=== PATIENT | male | born 1970 | race Two or more races ===

== ENCOUNTER 2024-07-22 17:21 | Emergency (ER) | payer MEDICAID, SELFPAY ==
[2024-07-22 17:21] VITALS: BMI 29.0
--- NOTE | 2024-07-22 17:53 | XR_ITS ---
Examination: PA lateral chest 2 views Technique: Upright PA lateral chest 2 views Exam date: July 22, 2024 7059 hours Comparison December 30, 2019 Indications: Onset coughing today Findings: Normal heart size On the lateral view partial obscuration of detail posterior right hemidiaphragm Left lung clear Impression: Early pneumonia posterior basal segment right lower lobe
--- NOTE | 2024-07-22 17:53 | PD.EDRME ---
Rapid Medical Screening Exam RME Arrival date/time: 07/22/24 17:21 54-year-old male presents emergency department complains of cough, congestion and bodyaches Chief Complaint: General Adult/Misc Complain
[2024-07-22 18:19] VITALS: BP 135/88; PULSE 90; RESP 18; TEMP 36.9; O2SAT 95
[2024-07-22 18:34] LABS: Collection Type, Urine Clean Catch; Squamous Epithelial Cell,Urine 0 /hpf (0-5)
[2024-07-22 18:52] LABS: Bilirubin,Urine Negative (Negative); Blood,Urine Negative (Negative); Clarity,Urine Clear (Clear/Hazy); Color,Urine Yellow (Lt Yel-Yel); Culture Indicated,Urine Not Indicated; Glucose, Urine Negative (Negative); Ketones,Urine Negative (Negative); Leukocyte Esterase,Urine Negative (Negative); Nitrite,Urine Negative (Negative); PH,Urine 5.5 (5.0-7.0); Protein,Urine Trace (Neg - Trace); RBC,Urine 5 /hpf (0-3); Specific Gravity,Urine 1.036 (1.001-1.035); WBC,Urine 2 /hpf (0-5)
--- NOTE | 2024-07-23 00:50 | PC.NURSE ---
PATIENT CAME TO [facility] TO ASK HOW MUCH LONG FOR RESULTS. I APOLOGIZED TO PATIENT AND NOTIFIED PROVIDER AND CHARGE NURSE.
--- NOTE | 2024-07-23 03:07 | EDNOTE_ITS ---
ED General RME/HPI General Chief complaint: General Adult/Misc Complain Stated complaint: I THINK I HAVE PNEUMONIA Time Seen by Provider: 07/22/24 18:57 Arrival date/time: 07/22/24 17:21 Limitations: no limitations RME / HPI RME / HPI narrative: 07/22/24 17:21 54-year-old male presents emergency department complains of cough, congestion and bodyaches ----- Dr. Meraz's Main ED Evaluation: 54yo male presents to the ED for a chief complaint of a cough. Patient states he's had a cough for the last 3 weeks, reporting he was previously on antibiotics, but has since finished them. He states he's had a persistent cough, so he came in for further evaluation. He reports associated fever, chills, sweating, headache, chest pain, and the inability to sleep. He also notes having UTI symptoms. He denies any N/V or any other associated symptoms. Denies any tobacco use. No known allergies. Related Data Home Medications ?Medication ?Instructions ?Recorded ?Confirmed hydrocodone 10 mg-acetaminophen 1 tab PO DIRECTED PRN 07/06/22 08/01/22 325 mg tablet tamsulosin 0.4 mg capsule 0.4 mg PO QHS 07/06/22 08/01/22 Previous Rx's ?Medication ?Instructions ?Recorded meloxicam 7.5 mg tablet 7.5 mg PO QDAY #14 tabs 09/02/22 methocarbamol 500 mg tablet 500 mg PO Q8H #14 tabs 09/02/22 hydrocodone 5 mg-acetaminophen 325 1 tab PO BID PRN pain #10 tabs 05/27/23 mg tablet acetaminophen 500 mg capsule 1,000 mg (2 x 500 mg) PO Q8HR PRN 07/04/23 pain #30 caps benzonatate 100 mg capsule 100 mg PO TID #14 caps 07/04/23 fluticasone propionate 50 2 spray intranasal QDAY PRN 07/04/23 mcg/actuation nasal allergy symptoms #16 grams spray,suspension (Flonase Allergy Relief) ibuprofen 800 mg tablet 800 mg PO TID PRN pain #30 tabs 07/04/23 loratadine 10 mg tablet 10 mg PO QDAY PRN allergy symptoms 07/04/23 #30 tabs Allergies Allergy/AdvReac Type Severity Reaction Status Date / Time No Known Allergies Allergy Verified 07/22/24 17:26 Review of Systems Review of Systems Systems Reviewed: All systems reviewed, normal except as documented Past Medical History Past Medical History NEUROLOGIC: Positive Traumatic Brain Injury CARDIAC: Negative Cardiac Disorders or Congestive Heart Failure RESPIRATORY: Negative Chronic Obstructive Pulmonary Disease (COPD) or Asthma GENITOURINARY: Negative Renal Disease ENDOCRINE: Negative Diabetes Mellitus Type 1 or Diabetes Mellitus Type 2 HEMATOLOGIC: Negative Sickle Cell Disease PSYCHO/SOCIAL: Positive Anxiety Social History SMOKING STATUS: Never smoker SUBSTANCE USE: does not use ED Exam General Limitations: Present no limitations General appearance: Present alert and in no apparent distress Head Head exam: Present atraumatic Eye Eye exam: Present normal appearance, PERRL and EOMI ENT ENT exam: Present normal exam, normal oropharynx and mucous membranes moist Neck Neck exam: Present normal inspection, full ROM and trachea midline Chest Chest inspection: Present normal inspection and symmetric chest wall rise Respiratory Respiratory exam: Present other (rhonchi on the right; appears dyspneic while talking.) Cardiovascular Cardiovascular exam: Present regular rate, normal rhythm and normal heart sounds Abdominal Exam Abdominal exam: Present soft and normal bowel sounds Extremities Exam Extremities exam: Present normal inspection and full ROM Back Exam Back exam: Present normal inspection and full ROM Neurological Exam Neurological exam: Present alert, oriented X3 and CN II-XII intact Psychiatric Psychiatric exam: Present normal affect and normal mood Skin Skin exam: Present warm, dry, intact and normal color Course Course Course Narrative: CXR is ordered for determining the etiology of cough. Quality Measures none Orders Category Date Time Status Bedside COVID-19 Antigen Test NOW Care 07/22/24 17:53 Completed Bedside Influenza A&B Antigen Test NOW Care 07/22/24 17:[address] Screening NOW Care 07/23/24 03:[address] angio chest Stat Exams 07/23/24 03:31 Taken XR chest 2V Stat Exams 07/22/24 17:53 Completed CBC Stat Lab 07/23/24 04:01 Completed CMP [Comprehensive Metabolic Panel] Stat Lab 07/23/24 04:01 Completed UA, C/S IF [Urinalysis, C/S if Indicated] Stat Lab 07/22/24 18:16 Completed 1 gm IV x1 (mini bag) ED Med 07/23/24 05:52 Ordered cefTRIAXone [Rocephin] 1,000 mg Sodium Chloride 0.9% (P) [Ns 0.9% (P)] 50 ml IV X1 Albuterol/Ipratr Rt Petra [Duoneb Rt Petra] Med 07/23/24 03:33 Discontinued 3 ml INH X1 ONE Doxycycline [Vibramycin] Med 07/23/24 05:52 Once 100 mg PO X1 ONE Sodium Chloride 0.9% 1000 ml [Ns] 1,000 ml Med 07/23/24 03:32 Discontinued IV 999 mls/hr Sodium Chloride 0.9% 1000 ml [Ns] 1,000 ml Med 07/23/24 05:52 Ordered IV 999 mls/hr Vital Signs Vital signs: Vital Signs Temperature 98.5 F 07/22/24 18:19 Pulse Rate 90 07/22/24 18:19 Respiratory Rate 18 07/22/24 18:19 Blood Pressure 135/88 H 07/22/24 18:19 Pulse Oximetry (%) 95 07/22/24 18:19 Oxygen Delivery Method Room Air 07/22/24 18:19 [facility] Patient data External records reviewed:: [facility] previous records (Per chart review, patient was seen here on 07/14/24 for a headache.) Clinical information provided by:: patient Social determinants that could affect healthcare access:: none Patient has the following chronic illnesses:: none How is presenting disease/condition affected by chronic disease/condition?: no chronic disease Evaluation data The following diagnostics were reviewed and interpreted by me:: lab results and radiology exam(s) Lab and/or radiology exams considered but not ordered:: none Interpretation Summary: Bedside COVID and Influenza are negative, UA is unremarkable, according to my interpretation. ----- [place] [facility] Report Signed Patient: LUCIA AVILES [facility] Record#: [id number] Birthdate: 1970 Age/Sex: 54 / M Location: [facility] Attending Dr: Ordering Physician: Felipe (ETHAN)Rommel NP Date of Service: 07/22/24 Procedure(s): XR chest 2V Accession Number(s): [id number] cc: Felipe MORALES)Rommel NP; Tristan Alanis MD; Maxx Bernal MD~ Examination: PA lateral chest 2 views Technique: Upright PA lateral chest 2 views Exam date: July 22, 2024 7059 hours Comparison December 30, 2019 Indications: Onset coughing today Findings: Normal heart size On the lateral view partial obscuration of detail posterior right hemidiaphragm Left lung clear Impression: Early pneumonia posterior basal segment right lower lobe Dictated By: Maxx Bernal MD Signed By: <Electronically signed by Maxx Bernal MD in OV> 07/22/24 1820 Medications Medications considered but not ordered:: none Medication administrations:: Medication Administration History Discontinued Medications Albuterol/Ipratropium (Albuterol/Ipratropium (Duoneb) Rt Petra 3 Ml Nebu) 3 ml INH X1 ONE Stop: 07/23/24 03:34 Last Admin: 07/23/24 04:29 Dose: 3 ml Documented By: SC Sodium Chloride (Ns) 1,000 mls @ 999 mls/hr IV .Q1H1M ONE Stop: 07/23/24 04:32 Last Admin: 07/23/24 04:02 Dose: 999 mls/hr Documented By: SE see above, if any Consultations Consultation(s) initiated? (list below): No Diagnosis Differential Diagnosis ED Complaint MDM: COVID, Influenza, pneumonia, PE, dehydration, UTI, kidney stone Most likely diagnosis given after review of the tests above:: see below Admission Indicated Admission indicated?: not indicated Explain why admission is indicated or not indicated:: Admission criteria not met. Admission Request Was there a request for admission?: No Disposition Plan Disposition Plan: other (specify) (Signed out to Dr. Corona at 0600 pending CTA of the chest.) Medical Decision Making Differential Diagnosis Differential Diagnosis: COVID, Influenza, pneumonia, PE, dehydration, UTI, kidney stone Lab Data 07/23/24 04:01 07/23/24 04:01 Labs: Lab Results 07/22/24 07/23/24 Range/Units 18:16 04:01 WBC 12.8 H (3.8-10.6) Thou/mm3 RBC 4.07 L (4.50-5.90) Miln/mm3 Hgb 12.7 L (13.5-16.0) g/dL Hct 38.2 L (41.0-53.0) % MCV 94 (80-100) fL MCH 31.2 (25.0-35.0) pg MCHC 33.2 (31.0-37.0) g/dl RDW Std Deviation 41.1 (35.1-43.9) fL Plt Count 207 (140-440) Thou/mm3 Neut % (Auto) 58 (37-80) % Lymph % (Auto) 31 (10-50) % [place] % (Auto) 7 (0-12) % Eos % (Auto) 2 (0-10) % Baso % (Auto) 0 (0-2.5) % Neut # (Auto) 7.4 (1.8-7.7) Thou/mm3 Lymph # (Auto) 4.0 (1.0-4.8) Thou/mm3 [place] # (Auto) 0.9 H (0.0-0.8) Thou/mm3 Eos # (Auto) 0.2 (0.0-0.5) Thou/mm3 Baso # (Auto) 0.1 (0.0-0.2) Thou/mm3 Immature Gran # (Auto) 0.23 H (0.00-0.00) Thou/mm3 Absolute Nucleated RBC 0.00 (0.00-0.00) Thou/mm3 Immature Gran % 2 H (0-0) % Nucleated RBC % 0 (0) /100 WBC Sodium 135 L (136-145) mMol/L Potassium 3.8 (3.4-5.1) mMol/L Chloride 102 (98-107) mMol/L Carbon Dioxide 26.5 (20.0-31.0) mMol/L Anion Gap 7 (7-16) BUN 17 (9-23) mg/dL Creatinine 0.9 (0.6-1.3) mg/dL Estim Creat Clear Calc 92.0 (>60) mL/min eGFR > 60 (60 - ) See Note BUN/Creatinine Ratio 19 (12-20) Ratio Glucose 110 H (74-106) mg/dL Calculated Osmolality 272 L (275-295) Calcium 9.5 (8.3-10.6) mg/dL Corrected Calcium 9.5 (8.5-10.1) mg/dL Total Bilirubin 1.0 (0.3-1.2) mg/dL AST 10 (0-34) U/L ALT 25 (10-49) U/L Alkaline Phosphatase 75 (46-116) U/L Total Protein 8.3 H (5.7-8.2) gm/dL Albumin 5.3 H (3.5-5.0) gm/dL Globulin 3.0 (2.3-3.5) gm/dL Albumin/Globulin Ratio 1.8 (1.2-2.2) Ur Collection Type Clean Catch Urine Color Yellow (Lt Yel-Yel) Urine Clarity Clear (Clear/Hazy) Urine pH 5.5 (5.0-7.0) Ur Specific [place] 1.036 H (1.001-1.035) Urine Protein Trace (Neg - Trace) Urine Glucose (UA) Negative (Negative) Urine Ketones Negative (Negative) Urine Blood Negative (Negative) Urine Nitrite Negative (Negative) Urine Bilirubin Negative (Negative) Urine Urobilinogen (Auto) 2.0 (0.0-1.0) mg/dL Ur Leukocyte Esterase Negative (Negative) Urine RBC 5 H (0-3) /hpf Urine WBC 2 (0-5) /hpf Ur Squamous Epith Cells 0 (0-5) /hpf Urine Bacteria None (None) Ur Culture Indicated? Not Indicated Discharge Plan Plan Disposition Comment: STABLE AT sign out Prescriptions/Referrals Prescriptions/Med Rec: No Action hydrocodone-acetaminophen 10-325 mg tablet 1 tab PO DIRECTED PRN tamsulosin 0.4 mg capsule 0.4 mg PO QHS hydrocodone-acetaminophen 5-325 mg tablet 1 tab PO BID MDD 10 PRN (Reason: pain) Qty: 10 0RF methocarbamol 500 mg tablet 500 mg PO Q8H Qty: 14 0RF meloxicam 7.5 mg tablet 7.5 mg PO QDAY Qty: 14 0RF acetaminophen 500 mg capsule 1,000 mg PO Q8HR PRN (Reason: pain) Qty: 30 0RF ibuprofen 800 mg tablet 800 mg PO TID PRN (Reason: pain) Qty: 30 0RF benzonatate 100 mg capsule 100 mg PO TID Qty: 14 0RF fluticasone propionate [Flonase Allergy Relief] 50 mcg/actuation spray,suspension 2 spray INTRANASAL QDAY PRN (Reason: allergy symptoms) Qty: 16 0RF Rx Instructions: administer into each nostril loratadine 10 mg tablet 10 mg PO QDAY PRN (Reason: allergy symptoms) Qty: 30 0RF Referrals: Tristan Alanis MD [Primary Care Provider] - In 1 week Problem List Clinical Impression: Community acquired pneumonia Patient/Caregiver Discharge Instructions Print Language: Barbadian
--- NOTE | 2024-07-23 03:31 | XR_ITS ---
Examination: CTA chest with intravenous contrast 2-D reconstructions 3-D reconstructions, vascular Date and time of exam: July 23, 2024 0511 hrs. Indications: Shortness of breath coughing chest pain beginning 3 weeks ago CTDI: vol (mGy) 14.37 DLP: (mGycm) 391 Technique: Multiple axial sections of the thorax have been obtained. 3 mm slice thickness, from below the hemidiaphragms to above the apices of the lungs. Mediastinal and lung density settings have been obtained. 2-D sagittal and coronal reconstructions. 3-D angiographic renderings, 3-D volume renderings, 3D post processing, vascular maximum intensity projections obtained. Contrast administered is the Isovue-370 intravenous. Low dose protocols were performed. One or more of the following dose reduction techniques were used; automated exposure control, adjustment of the mA and/or KV according to patient size, use of iterative reconstruction technique. Findings: No thoracic aortic aneurysmal dilatation Pulmonary artery segments are not enlarged No pulmonary artery emboli No paratracheal tracheobronchial or bronchopulmonary adenopathy Early pneumonia right base No focal liver or splenic lesions Contracted gallbladder with tiny gallstones No pancreatic or adrenal mass Kidneys partially visualized no hydronephrosis Mild to moderate renal parenchymal scar formation suspicious for 10 mm left periaortic lymph node Impression: Negative for pulmonary artery emboli Suspicious for 10 mm left periaortic lymph node, consider CT scan abdomen pelvis without contrast follow-up
[2024-07-23 03:50] VITALS: BP 139/86; PULSE 66; RESP 18; TEMP 36.6; O2SAT 97
[2024-07-23] MEDS: SODIUM CHLORIDE 0.9% 1000 ML 1,000 ML 999 ML IV ×2 (04:02→06:29)
[2024-07-23 04:13] LABS: Basophils # (Auto) 0.1 Thou/mm3 (0.0-0.2); Basophils % (Auto) 0 % (0-2.5); Eosinophils # (Auto) 0.2 Thou/mm3 (0.0-0.5); Eosinophils % (Auto) 2 % (0-10); Hematocrit 38.2 % (41.0-53.0); Hemoglobin 12.7 g/dL (13.5-16.0); Immature Granulocytes % (Auto) 2 % (0-0); Immature Granulocytes Auto 0.23 Thou/mm3 (0.00-0.00); Lymphocytes % (Auto) 31 % (10-50); Mean Corpuscular HGB Conc 33.2 g/dl (31.0-37.0); Mean Corpuscular Hemoglobin 31.2 pg (25.0-35.0); Mean Corpuscular Volume 94 fL (80-100); Monocytes # (Auto) 0.9 Thou/mm3 (0.0-0.8); Monocytes % (Auto) 7 % (0-12); Neutrophils # (Auto) 7.4 Thou/mm3 (1.8-7.7); Neutrophils % (Auto) 58 % (37-80); Nucleated Red Blood Cell % 0 /100 WBC (0); Platelet Count 207 Thou/mm3 (140-440); RDW Standard Deviation 41.1 fL (35.1-43.9); Red Blood Count 4.07 Miln/mm3 (4.50-5.90); White Blood Count 12.8 Thou/mm3 (3.8-10.6)
[2024-07-23] MEDS: ALBUTEROL/IPRATROPIUM (Duoneb) RT SOL 3 ML NEBU INH (04:29)
[2024-07-23 04:33] VITALS: PULSE 66; RESP 20; O2SAT 100
[2024-07-23 04:39] LABS: Alanine Aminotransferase 25 U/L (10-49); Alkaline Phosphatase 75 U/L (46-116); Anion Gap 7 (7-16); Aspartate Amino Transferase 10 U/L (0-34); BUN/Creatinine Ratio 19 Ratio (12-20); Blood Urea Nitrogen 17 mg/dL (9-23); Calcium 9.5 mg/dL (8.3-10.6); Calcium (Corrected) 9.5 mg/dL (8.5-10.1); Carbon Dioxide 26.5 mMol/L (20.0-31.0); Chloride 102 mMol/L (98-107); Creatinine (Component) 0.9 mg/dL (0.6-1.3); Glucose 110 mg/dL (74-106); Osmolality,Calculated 272 (275-295); Potassium 3.8 mMol/L (3.4-5.1); Sodium 135 mMol/L (136-145); Total Protein 8.3 gm/dL (5.7-8.2); eGFR > 60 See Note
[2024-07-23] MEDS: DOXYCYCLINE 100 MG TABLET PO (06:30)
[2024-07-23] MEDS: cefTRIAXone 1,000 MG in SODIUM CHLORIDE 0.9% (P) 50 ML 100 MG IV (06:30)
--- NOTE | 2024-07-23 06:33 | PRELIM_ITS ---
CT angiogram of the chest with intravenous contrast (axial sections with sagittal and coronal reforma ts) July 23, 2024 at 0511 hoursClinical History: Shortness of breath. Technique:Helical axial sect ions with sagittal and coronal reformats of the chest were obtained with intravenous contrast. Iterat frandy reconstruction technique was employed to reduce patient radiation exposure. 3D/MIP reconstructed images were also provided. Comparison: Compared with the prior study dated March 31, 2023.Finding s:There is no filling defect within the pulmonary artery divisions to suggest pulmonary thromboemboli sm. There are small mediastinal lymph nodes, likely reactive. The thoracic aorta is unremarkable. The re is no pericardial effusion. Mild coronary artery calcification is noted. There is bronchial wall t hickening and peribronchial ground-glass opacities in bilateral lower lobes, new since the prior exam ination. Streaky atelectasis is seen in the right middle and both lower lobes, new since the prior ex amination. No evidence of pleural effusion or pneumothorax.Mild degenerative changes are again identi fied in the spine. Again seen is cholelithiasis. Again seen are multiple colonic diverticula without evidence of diverticulitis. Nonspecific perinephric fat stranding is again noted bilaterally. The oth er visualized upper abdominal viscera are unremarkable.Impression:1. No CT evidence of pulmonary thro mboembolism.2. Bronchial wall thickening and peribronchial ground-glass opacities in bilateral lower lobes, likely of infectious etiology. Recommend clinical correlation. 3. Other findings as described above. Report Electronically Signed By: Travis Buenrostro 07/23/2024 6:32:29 AM [EST]
[2024-07-23 06:39] VITALS: BP 127/83; PULSE 76; RESP 18; TEMP 36.6; O2SAT 96
--- NOTE | 2024-07-23 07:08 | PD.EDADDENDU ---
Emergency Room Addendum Addendum Narrative: 0600: Care assumed from Dr. Waller, the previous shift emergency physician. Past medical, surgical, social and family history reviewed. Vitals and home medications reviewed. I will assume the care of the patient at this time, pending CTA report and final disposition. Please refer to the emergency department record for history and examination from initial visit.? Nursing notes reviewed by me. Vital signs reviewed by me. [place] medical records reviewed by me. 1210: Patient remains clinically stable throughout the emergency department visit. We reviewed all the results, analysis, and treatment plans. Patient is amenable to discharge. Strict return precautions were outlined. Patient was discharged in stable condition. RADIOLOGY Ordering Physician: Linda Meraz MD Date of Service: 07/23/24 Procedure(s): CT angio chest Accession Number(s): [id number] cc: Tristan Alanis MD; Maxx Bernal MD; Linda Meraz MD~ Examination: CTA chest with intravenous contrast 2-D reconstructions 3-D reconstructions, vascular Date and time of exam: July 23, 2024 0511 hrs. Indications: Shortness of breath coughing chest pain beginning 3 weeks ago CTDI: vol (mGy) 14.37 DLP: (mGycm) 391 Technique: Multiple axial sections of the thorax have been obtained. 3 mm slice thickness, from below the hemidiaphragms to above the apices of the lungs. Mediastinal and lung density settings have been obtained. 2-D sagittal and coronal reconstructions. 3-D angiographic renderings, 3-D volume renderings, 3D post processing, vascular maximum intensity projections obtained. Contrast administered is the Isovue-370 intravenous. Low dose protocols were performed. One or more of the following dose reduction techniques were used; automated exposure control, adjustment of the mA and/or KV according to patient size, use of iterative reconstruction technique. Findings: No thoracic aortic aneurysmal dilatation Pulmonary artery segments are not enlarged No pulmonary artery emboli No paratracheal tracheobronchial or bronchopulmonary adenopathy Early pneumonia right base No focal liver or splenic lesions Contracted gallbladder with tiny gallstones No pancreatic or adrenal mass Kidneys partially visualized no hydronephrosis Mild to moderate renal parenchymal scar formation suspicious for 10 mm left periaortic lymph node Impression: Negative for pulmonary artery emboli Suspicious for 10 mm left periaortic lymph node, consider CT scan abdomen pelvis without contrast follow-up Dictated By: Maxx Bernal MD Signed By: <Electronically signed by Maxx Bernal MD in OV> 07/23/24 1003
[2024-07-23 07:26] LABS: Albumin, Serum 4.5 gm/dL (3.5-5.0); Albumin/Globulin Ratio 1.2 (1.2-2.2); Globulin 3.8 gm/dL (2.3-3.5)
[2024-07-23 08:56] VITALS: BP 114/75; PULSE 78; RESP 16; TEMP 36.7; O2SAT 95
[2024-07-23 12:27] VITALS: BP 132/80; PULSE 72; RESP 19; TEMP 36.2; O2SAT 95
== END 2024-07-23 13:02 | disposition home or self-care (01) ==
PROVIDERS: Emergency Medicine; Nurse Practitioner Primary Care; Emergency Provider Emergency Medicine; PCP Family Medicine
DX: J18.9 Pneumonia, unspecified organism (principal)
CPT/HCPCS: 36415; 71046; 71275; 80053; 81001; 85025; 87400; 87811; 94640; 96365; 96366; 99285; A4649; A9270; J0696; J7030; J7050; Q9967

== ENCOUNTER 2024-09-11 18:08 | Inpatient (IN) | payer MEDICAID, SELFPAY ==
[2024-09-11] VITALS (8 sets, daily range): BP systolic 126–150; BP diastolic 83–91; PULSE 90–121; RESP 16–20; TEMP 36.5–39.2; O2SAT 92–98; BMI 28.5; BMI 27.6
--- NOTE | 2024-09-11 18:30 | PC.NURSE ---
Pt. states he's here from home via [facility], pt. states he has been SOB X 5 or 6 days. Pt. states fever started yesterday. Pt. states he has been coughing up yellow and at night it gets darker in color.
--- NOTE | 2024-09-11 18:44 | EKG_ITS ---
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
--- NOTE | 2024-09-11 18:44 | XR_ITS ---
Examination: AP chest single view Technique one AP portable supine chest single view Exam date and time: September 11, 2024 1942 hrs. Comparison July 22, 2024 Indications: Onset chest pain today. Findings: Mild prominence left ventricle Mild elevation right hemidiaphragm Poor definition left hemidiaphragm No pulmonary edema Impression: Recommend lateral chest view follow-up to exclude pneumonia left base
--- NOTE | 2024-09-11 18:53 | EDNOTE_ITS ---
ED SOB =RME/HPI General Chief Complaint: Shortness of Breath/Dyspnea Stated Complaint: SOB Time Seen by Provider: 09/11/24 18:44 Source: patient and EMS Arrival date/time: 09/11/24 18:08 Mode of arrival: EMS Limitations: no limitations RME / HPI RME / HPI Narrative: DR CORONA MAIN ED EVALUATION: 54-year-old male with a history of seasonal allergies, childhood asthma, and status post hernia repair with mesh placement in 1999, presenting to the ED from home for progressive shortness of breath, productive cough, and fever. The patient reports that his symptoms began approximately 1 week ago, initially presenting with a productive cough with greenish-yellow sputum, shortness of breath with chest tightness, and fever with chills. Over the past week, his symptoms have worsened, prompting him to seek medical evaluation. He also endorses headache, nasal congestion, and generalized fatigue, but denies nausea, vomiting, or abdominal pain. He was evaluated at [facility] yesterday for a fever of 101?F and was advised to go to the ER, but he delayed seeking care due to personal reasons. He also reports a history of recurrent respiratory issues, which have worsened over the past year, and follows up with [facility] but has never been evaluated by a phone counselor. Additionally, he has a history of pneumonia and urinary tract infections requiring hospitalization. Per EMS report, the patient was noted to have wheezing on the left side and received one respiratory treatment en route to the ED. On arrival, nursing assessment noted shallow breath sounds and dyspnea on exertion. Vital Signs on EMS Arrival: Blood pressure: 141/80 mmHg Heart rate: 118 bpm Respiratory rate: 16 breaths per minute Oxygen saturation: 95% on room air The patient denies recent travel and has not received a flu vaccination in the past 12 months. He also denies tobacco, alcohol, or substance use. He complains of severe headache, rated 10/10, which he attributes to persistent coughing episodes. Related Data Home Medications ?Medication ?Instructions ?Recorded ?Confirmed hydrocodone 10 mg-acetaminophen 1 tab PO DIRECTED P RN 07/06/22 08/01/22 325 mg tablet tamsulosin 0.4 mg capsule 0.4 mg PO QHS 07/06/2208/01 Previous Rx's ?Medication ?Instructions ?Recorded meloxicam 7.5 mg tablet 7.5 mg PO QDAY #14 tabs 08/22 09/13 methocarbamol 500 mg tablet 500 mg PO Q8H #14 tabs 07/13 hydrocodone 5 mg-acetaminophen 325 1 tab PO BID PRN pa in #10 tabs 05/27/23 mg tablet acetaminophen 500 mg capsule 1,000 mg (2 x 500 mg) PO Q8HR PRN 07/04/23 pain #30 caps benzonatate 100 mg capsule 100 mg PO TID #14 caps 06/21 11/11 fluticasone propionate 50 2 spray intranasal QDAY PRN 07/04/23 mcg/actuation nasal allergy symptoms #16 grams spray,suspension (Flonase Allergy Relief) ibuprofen 800 mg tablet 800 mg PO TID PRN pain #30 t abs 07/04/23 loratadine 10 mg tablet 10 mg PO QDAY PRN allergy sy mptoms 07/04/23 #30 tabs doxycycline monohydrate 100 mg 100 mg PO BID #14 caps 07/23/24 capsule Allergies Allergy/AdvReac Type Severity Reaction Status Date / Time No Known Allergies Allergy Verified 09/11/24 18:32 Review of Systems Review of Systems Systems Reviewed: All systems reviewed, normal except as documented Past Medical History Past Medical History NEUROLOGIC: Positive Traumatic Brain Injury CARDIAC: Negative Cardiac Disorders or Congestive Heart Failure RESPIRATORY: Positive Asthma; Negative Chronic Obstructive Pulmonary Disease (COPD) GENITOURINARY: Negative Renal Disease ENDOCRINE: Negative Diabetes Mellitus Type 1 or Diabetes Mellitus Type 2 HEMATOLOGIC: Negative Sickle Cell Disease PSYCHO/SOCIAL: Positive Anxiety Social History SMOKING STATUS: Never smoker SUBSTANCE USE: does not use ED Exam Narrative Physical exam: GENERAL APPEARANCE: alert and oriented x 4, well-developed, well-nourished, no acute distress VITALS: All vitals were reviewed and the pulse ox is 95% on room air, which is normal according to my interpretation. HEENT: Normocephalic, atraumatic; pupils equal, round, reactive to light; EOMI; mucous membranes pink, moist; oropharynx clear NECK: Supple LUNGS: CTABL; no wheezes, no rales, no rhonchi HEART: Regular rate, regular rhythm; normal S1, S2; no murmurs ABDOMEN: non distended; normal BS; soft, no tenderness, no guarding, no rebound; no masses, no organomegaly, no hernia BACK: no CVA tenderness EXTREMITIES: atraumatic; no edema NEUROLOGIC: awake; alert and oriented x4; cranial nerves II-XII grossly intact; no focal sensory or motor deficits PSYCHIATRIC: appropriate mood and affect SKIN: warm, dry, normal color; no rashes General Limitations: Present no limitations Course Course Course Narrative: 1921 Sepsis alert initiated. Orders made at this time are congruent with ED Adult Sepsis Order List. Re-evaluation is to be completed. 1999 Sepsis reassessment performed consisting of lab review, vitals, physical exam including auscultation of heart, lungs, and visual evaluation of capillary refills, mucosal membranes and extremities. CXR is ordered for determining etiology of shortness of breath, cough, fever. Quality Measures Current suspected stage: sepsis Possible source: pulmonary Blood cultures ordered: yes Antibiotic ordered: Yes Pertinent labs: 09/11/24 19:05 Lactic Acid 1.2 mMol/L (0.4-2.0) Procalcitonin 0.13 ng/ml (0.0-0.49) sepsis Orders Category Date Time Status Bedside COVID-19 Antigen Test NOW Care 09/11/24 20:01 Completed COVID-19 Screening Questionnaire NOW Care 09/11/24 20:01 Completed Multilith Operator NOW Care 09/11/24 18:44 Active EKG (ED ONLY) *Do not use* NOW Care 09/11/24 18:44 Completed EKG (ED Only) Stat Exams 09/11/24 18:44 Draft XR chest 1V portable Stat Exams 09/11/24 18:44 Completed B-Type Natriuretic Peptide Stat Lab 09/11/24 19:05 Completed Blood Culture (Lab) Stat Lab 09/11/24 19:10 Results CBC Stat Lab 09/11/24 19:05 Completed Comprehensive Metabolic Panel Stat Lab 09/11/24 19:05 Completed Lactate (Lactic Acid) Stat Lab 09/11/24 19:05 Completed Lipase Stat Lab 09/11/24 19:05 Completed Magnesium Stat Lab 09/11/24 19:05 Completed Partial Thromboplastin Time Stat Lab 09/11/24 19:05 Completed Procalcitonin Stat Lab 09/11/24 19:05 Completed Prothrombin Time with INR Stat Lab 09/11/24 19:05 Completed Troponin I Stat Lab 09/11/24 19:05 Completed Urinalysis Stat Lab 09/11/24 20:00 Completed Urine Culture Stat Lab 09/11/24 20:00 Received Acetaminophen Tab [Tylenol ES Tab] Med 09/11/24 18:45 Discontinued 1,000 mg PO X1 ONE Azithromycin Inj [Zithromax Inj] 500 mg Med 09/11/24 18:46 Discontinued Sodium Chloride 0.9% 250 ml [Ns] 250 ml IV X1 Sodium Chloride 0.9% 1000 ml [Ns] 1,000 ml Med 09/11/24 19:07 Discontinued IV 999 mls/hr cefTRIAXone [Rocephin] 1,000 mg Med 09/11/24 18:45 Discontinued SODIUM CHLORIDE 0.9% (Popper) [NS 0.9% (Popper)] 50 ml IV X1 Vital Signs Vital signs: Vital Signs Temperature 102.5 F H 09/11/24 18:15 Pulse Rate 121 H 09/11/24 18:15 Respiratory Rate 16 09/11/24 18:15 Blood Pressure 150/91 H 09/11/24 18:15 Pulse Oximetry (%) 95 09/11/24 18:15 Oxygen Delivery Method Room Air 09/11/24 18:15 Shortness of Breath / Dyspnea MDM Narrative MDM Narrative:: Scribe Attestation: I, Geena Trujillo, am scribing for and in the presence of Dr. Corona. Provider Notation: Although this document has been carefully reviewed, there may still be some phonetic and other typographical errors. These errors are purely grammatical due to imperfections in the software program and should not be construed in any way to compromise the substance of the patient's medical care during this visit. Patient data External records reviewed:: [facility] previous records and EMS form Clinical information provided by:: patient and none Social determinants that could affect healthcare access:: none Patient has the following chronic illnesses:: see PMH How is presenting disease/condition affected by chronic disease/condition?: uneffected by Evaluation data The following diagnostics were reviewed and interpreted by me:: lab results, radiology exam(s) and EKG tracing(s) Lab and/or radiology exams considered but not ordered:: na Interpretation Summary: I personally reviewed the radiology data and agree with the radiologist's interpretation. Examination: AP chest single view Technique one AP portable supine chest single view Exam date and time: September 11, 2024 1942 hrs. Comparison July 22, 2024 Indications: Onset chest pain today. Findings: Mild prominence left ventricle Mild elevation right hemidiaphragm Poor definition left hemidiaphragm No pulmonary edema Impression: Recommend lateral chest view follow-up to exclude pneumonia left base Dictated By: Maxx Bernal MD EKG manually interpreted by me shows sinus tachycardia at a rate of 121 bpm, with no ST elevation or acute ischemic changes. Overall, the interpretation is normal. Medications / Prescriptions Medications or Prescriptions considered but not ordered:: na Medication administrations:: Medication Administration History Acetaminophen (Acetaminophen 325 Mg Tablet) 650 mg PO Q6H PRN PRN Reason: PAIN OR FEVER > 101 Stop: 10/11/24 20:11 Last Admin: 09/12/24 20:19 Dose: 650 mg Documented By: Albuterol/Ipratropium (Albuterol/Ipratropium (Duoneb) Rt Petra 3 Ml Nebu) 3 ml INH Q6HRRT JACKY Stop: 10/12/24 12:59 Last Admin: 09/13/24 00:36 Dose: 3 ml Documented By: Admin: 09/12/24 19:23 Dose: 3 ml Documented By: Admin: 09/12/24 13:46 Dose: 3 ml Documented By: Benzonatate (Benzonatate 100 Mg Capsule) 200 mg PO Q8HR JACKY; Protocol Stop: 10/12/24 07:59 Last Admin: 09/12/24 22:04 Dose: 200 mg Documented By: Admin: 09/12/24 14:09 Dose: 200 mg Documented By: Admin: 09/12/24 08:30 Dose: 200 mg Documented By: CYDNEY Enoxaparin Sodium (Enoxaparin Sod Inj 40 Mg/0.4 Ml Syringe) 40 mg SC QDAY [facility] Stop: 09/26/24 08:59 Last Admin: 09/12/24 08:24 Dose: 40 mg Documented By: CYDNEY Fluticasone Propionate (Fluticasone Farhat Belton 0.05% 16 Gm Btl) 1 spray NASAL QDAY [facility] Stop: 10/12/24 09:44 Last Admin: 09/12/24 12:24 Dose: 1 spray Documented By: CYDNEY Guaifenesin (Guaifenesin Syrup 200 Mg/10 Ml Udc) 200 mg PO BID [facility]; Protocol Stop: 10/12/24 08:59 Last Admin: 09/12/24 21:17 Dose: 200 mg Documented By: Admin: 09/12/24 08:25 Dose: 200 mg Documented By: CYDNEY Sodium Chloride (Ns) 1,000 mls @ 75 mls/hr IV .[id number] [facility] Stop: 10/11/24 20:14 Last Admin: 09/13/24 01:09 Dose: 75 mls/hr Documented By: Infusion: 09/13/24 01:09 Dose: Infused Documented By: Admin: 09/12/24 11:57 Dose: 75 mls/hr Documented By: Infusion: 09/12/24 10:39 Dose: Infused Documented By: Admin: 09/11/24 21:19 Dose: 75 mls/hr Documented By: ANGEL Ceftriaxone Sodium 1,000 mg/ (Sodium Chloride) 50 mls @ 100 mls/hr IV QDAY [facility] Stop: 09/15/24 08:59 Last Admin: 09/12/24 08:24 Dose: 100 mls/hr Documented By: CYDNEY Azithromycin 500 mg/ Sodium (Chloride) 250 mls @ 250 mls/hr IV QDAY@1400 [facility] Stop: 09/13/24 13:59 Last Admin: 09/12/24 14:09 Dose: 250 mls/hr Documented By: CYDNEY Discontinued Medications Acetaminophen (Acetaminophen 500 Mg Tablet) 1,000 mg PO X1 ONE Stop: 09/11/24 18:46 Last Admin: 09/11/24 19:32 Dose: 1,000 mg Documented By: ANGEL Acetaminophen (Acetaminophen 325 Mg Tablet) 650 mg PO Q6H PRN PRN Reason: Fever >101.5 Stop: 10/11/24 20:11 Acetaminophen (Acetaminophen 500 Mg Tablet) 500 mg PO X1 ONE Stop: 09/11/24 22:53 Last Admin: 09/11/24 23:07 Dose: 500 mg Documented By: Albuterol/Ipratropium (Albuterol/Ipratropium (Duoneb) Rt Petra 3 Ml Nebu) 3 ml INH Q4HRRT [facility] Stop: 10/11/24 22:59 Last Admin: 09/12/24 07:23 Dose: 3 ml Documented By: Admin: 09/12/24 03:24 Dose: 3 ml Documented By: Admin: 09/11/24 22:44 Dose: 3 ml Documented By: LANIE Benzonatate (Benzonatate 100 Mg Capsule) 200 mg PO Q8HR PRN; Protocol PRN Reason: COUGH Stop: 10/11/24 22:51 Last Admin: 09/11/24 23:07 Dose: 200 mg Documented By: Ceftriaxone Sodium 1,000 mg/ (Sodium Chloride) 50 mls @ 100 mls/hr IV X1 ONE Stop: 09/11/24 19:14 Last Infusion: 09/11/24 20:07 Dose: Infused Documented By: Admin: 09/11/24 19:32 Dose: 100 mls/hr Documented By: ANGEL Azithromycin 500 mg/ Sodium (Chloride) 250 mls @ 250 mls/hr IV X1 ONE Stop: 09/11/24 19:45 Last Infusion: 09/11/24 21:27 Dose: Infused Documented By: Admin: 09/11/24 20:03 Dose: 250 mls/hr Documented By: ANGEL Sodium Chloride (Ns) 1,000 mls @ 999 mls/hr IV .Q1H1M ONE Stop: 09/11/24 20:07 Last Infusion: 09/11/24 20:57 Dose: Infused Documented By: Admin: 09/11/24 19:33 Dose: 999 mls/hr Documented By: ANGEL Sodium Chloride (Sodium Chloride Rt 10% 15 Ml Nebu) 5 ml INH X1 ONE Stop: 09/11/24 21:44 Last Admin: 09/11/24 22:59 Dose: Not Given Documented By: LANIE Non-Admin Reason: not needed, pt self expectorated. as above Consultations Consultation(s) initiated? (list below): Yes Consultation #1 (Physician, Specialty, Details): Dr. Hagan made aware of the patient?s HPI, PMHx, lab and/or radiology results. Treatment plan was discussed. Accepts patient for admission. Time: 20:20 Diagnosis Shortness of Breath Differential Diagnosis: acute exacerbation of chronic obstructive airways disease, congestive heart failure, community acquired pneumonia and asthma with exacerbation Most likely diagnosis given after review of the tests above:: Pneumonia Admission Indicated Admission indicated?: indicated Admission Request Was there a request for admission?: Yes Admission Attestation Admission request attestation: Discussed case with [] from Hospitalist service regarding admission. Discussed patients ED course, exam findings, labs, and radiology results. The Hospitalist [agrees,declines] to accept the patient for admission. Disposition Plan Disposition Plan: Admit Critical Care Time Critical Care Time Critical Care Time: Yes Total Critical Care Time (min.): 35 Attestation: The high probability of sudden, clinically significant deterioration in the patient?s condition required the highest level of my preparedness to intervene urgently. ? The services I provided to this patient were to treat and/or prevent clinically significant deterioration. Services included the following: chart data review, reviewing nursing notes and/or old charts, documentation time, microsoft dynamics ax consultant collaboration regarding findings and treatment options, medication orders and management, direct patient care, vital sign assessments and ordering, interpreting and reviewing diagnostic studies and lab tests. ? Aggregate critical care time includes only time during which I was engaged in work directly related to the patient?s care, as described above, whether at bedside or elsewhere in the Emergency Department. It did not include time spent performing other reported procedures or the services of residents, students, nurses or physician assistants. Discharge Plan Plan Patient Disposition: Admit Acute Care w/in Hospital Patient condition on transfer: Stable Problem List Clinical Impression: Community acquired pneumonia
--- NOTE | 2024-09-11 18:59 | PC.NURSE ---
Sepsis alert called [id number].
[2024-09-11 19:17] LABS: Lactate (Lactic Acid) 1.2 mMol/L (0.4-2.0)
[2024-09-11 19:19] LABS: Basophils % (Auto) 0 % (0-2.5); Eosinophils % (Auto) 0 % (0-10); Hematocrit 41.6 % (41.0-53.0); Hemoglobin 14.2 g/dL (13.5-16.0); Immature Granulocytes % (Auto) 1 % (0-0); Immature Granulocytes Auto 0.09 Thou/mm3 (0.00-0.00); Lymphocytes # (Auto) 2.1 Thou/mm3 (1.0-4.8); Lymphocytes % (Auto) 15 % (10-50); Mean Corpuscular HGB Conc 34.1 g/dl (31.0-37.0); Mean Corpuscular Hemoglobin 31.1 pg (25.0-35.0); Mean Corpuscular Volume 91 fL (80-100); Monocytes # (Auto) 0.8 Thou/mm3 (0.0-0.8); Monocytes % (Auto) 6 % (0-12); Neutrophils # (Auto) 10.7 Thou/mm3 (1.8-7.7); Neutrophils % (Auto) 78 % (37-80); Nucleated Red Blood Cell % 0 /100 WBC (0); Platelet Count 148 Thou/mm3 (140-440); RDW Standard Deviation 41.1 fL (35.1-43.9); Red Blood Count 4.56 Miln/mm3 (4.50-5.90); White Blood Count 13.8 Thou/mm3 (3.8-10.6)
[2024-09-11] MEDS: ACETAMINOPHEN 500 MG TABLET 1000 MG PO (19:32)
[2024-09-11] MEDS: cefTRIAXone 1,000 MG in SODIUM CHLORIDE 0.9% (Popper) 50 ML 100 MG IV (19:32)
[2024-09-11] MEDS: SODIUM CHLORIDE 0.9% 1000 ML 1,000 ML 999 ML IV (19:33)
[2024-09-11 19:45] LABS: B-Type Natriuretic Peptide < 20 pg/mL (0-100); INR 1.2 (0.9-1.3); Partial Thromboplastin Time 29.1 Seconds (22.0-36.0); Prothrombin Time 12.6 Seconds (9.0-12.2)
[2024-09-11 19:53] LABS: Alanine Aminotransferase 24 U/L (10-49); Albumin, Serum 4.7 gm/dL (3.5-5.0); Albumin/Globulin Ratio 1.2 (1.2-2.2); Alkaline Phosphatase 83 U/L (46-116); Anion Gap 9 (7-16); Aspartate Amino Transferase 21 U/L (0-34); BUN/Creatinine Ratio 14 Ratio (12-20); Bilirubin,Total 1.1 mg/dL (0.3-1.2); Blood Urea Nitrogen 13 mg/dL (9-23); Calcium 9.7 mg/dL (8.3-10.6); Calcium (Corrected) 9.7 mg/dL (8.5-10.1); Carbon Dioxide 23.3 mMol/L (20.0-31.0); Chloride 104 mMol/L (98-107); Creatinine (Component) 0.9 mg/dL (0.6-1.3); Estimated Creatinine Clearance 94.2 mL/min (>60); Globulin 3.8 gm/dL (2.3-3.5); Glucose 118 mg/dL (74-106); Lipase 59 U/L (12-53); Magnesium 1.9 mg/dL (1.6-2.6); Osmolality,Calculated 273 (275-295); Procalcitonin 0.13 ng/ml (0.0-0.49); Sodium 136 mMol/L (136-145); Total Protein 8.5 gm/dL (5.7-8.2); Troponin I < 0.002 ng/mL (0.0-0.045); eGFR > 60 See Note
[2024-09-11] MEDS: AZITHROMYCIN INJ 500 MG in SODIUM CHLORIDE 0.9% 250 ML 250 ML 250 MG IV (20:03)
--- NOTE | 2024-09-11 20:19 | EVENTNT_ITS ---
Documentation for date of: 09/11/24 Event Note Event Note: A 54-year-old male presented to the ER with the chief complaint of shortness of breath and cough. The patient reports experiencing progressive shortness of breath and cough for the past five days, with worsening symptoms over the last 24 hours. He describes his cough as productive with greenish-yellow sputum, which appears darker in the morning. He also endorses fever, chills, headaches, dizziness, poor appetite, and fatigue. He noted diffuse chest pain, but denies diarrhea. He was seen at a clinic yesterday for a fever of 101?F and was advised to go to the ER but delayed due to personal reasons. He states that he has had recurrent breathing issues over the past five years, with a previous ER visit approximately few months ago where he received ceftriaxone IV without admission. The patient has a history of hypertension and childhood asthma. His surgical history includes a hernia mesh repair in 1999. He is not currently on any medications except for allergy medications. He denies smoking and alcohol use but reports significant secondhand smoke exposure. 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 He has had multiple episodes of pneumonia, including a severe episode at age 8 requiring hospitalization. He had a previous hospitalization in 2019 or 2020 for a UTI that led to sepsis and delusions. He is but currently not living with his due to financial reasons. He has been undergoing dental work, including extractions and root canals, and was recently prescribed penicillin, which he discontinued due to diarrhea. In the Emergency Department, the patient was initially evaluated with vital signs notable for a fever of 102.5?F, tachycardia at 121 bpm, blood pressure of 150/91 mmHg, and an oxygen saturation of 95% on room air. Laboratory results revealed leukocytosis (WBC 13.8), mild thrombocytopenia (PLT 148), normal hemoglobin (HB 14.2), normal renal function (BUN 13, creatinine 0.9), and normal lactic acid (1.2). Procalcitonin was low at 0.13. Chest X-ray demonstrated left basilar pneumonia. EKG showed sinus tachycardia. Given concerns for sepsis, a sepsis alert was called. The patient received ceftriaxone and azithromycin and was admitted for further management. Community-Acquired Pneumonia Sepsis #Assessment: * The patient presents with progressive shortness of breath, productive cough with purulent sputum, fever, chills, and systemic symptoms, consistent with pneumonia. * Chest X-ray shows left basilar pneumonia. * History of multiple prior pneumonia episodes and significant environmental exposures raises concerns for underlying chronic lung disease or atypical infections. * COVID/FLU negative. #Plan: * Continue empiric antibiotic therapy: Ceftriaxone + Azithromycin. * Monitor for clinical improvement, including resolution of fever and stabilization of vital signs. * Supportive care: Antipyretics for fever, adequate hydration, and symptomatic management of cough and dyspnea. * Oxygen therapy if hypoxia develops. * Sepsis workup. Hypertension #Assessment: * Elevated blood pressure (150/91 mmHg) noted, likely stress-related or secondary to infection. * History of hypertension but not currently on antihypertensive medications. #Plan: * Monitor BP trends throughout hospitalization. * If persistently elevated, consider initiating antihypertensive therapy. 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
[2024-09-11 20:23] LABS: Collection Type, Urine Clean Catch
[2024-09-11 20:44] LABS: Bacteria,Urine Rare; Bilirubin,Urine Negative (Negative); Blood,Urine Negative (Negative); Clarity,Urine Clear (Clear/Hazy); Color,Urine Lt-Yellow (Lt Yel-Yel); Glucose, Urine Negative (Negative); Ketones,Urine Negative (Negative); Leukocyte Esterase,Urine Negative (Negative); Nitrite,Urine Negative (Negative); Protein,Urine Trace (Neg - Trace); RBC,Urine 1 /hpf (0-3); Specific Gravity,Urine 1.014 (1.001-1.035); Squamous Epithelial Cell,Urine < 1 /hpf (0-5); Urobilinogen,Urine Negative mg/dL (0.0-1.0); WBC,Urine < 1 /hpf (0-5)
--- NOTE | 2024-09-11 20:47 | ESHP_ITS ---
Documentation for date of: 09/11/24 [facility] History of Present Illness Chief complaint: Cough, shortness of breath History of present illness: Mr. Zapien is a 54-year-old male with history of seasonal allergies, childhood asthma and status post hernia repair with mesh placement in 1999 who presented to [facility] emergency department from home on 09/11/2024 with a chief complaint of shortness of breath cough and fever. Patient reported that his symptoms started about a week ago complains of cough productive greenish- yellow, shortness of breath with chest tightness and fever with chills reported his symptoms have been worsening since the past week. Otherwise patient complains of headache and nasal congestion. Patient reports that his respiratory issues have worsened over the past year, reports following up with [facility] [place] [facility], never seen a nanotechnology engineering technician. Patient does endorse some pain in the inguinal region where he had mesh placement, chronic. Does report history of UTI and pneumonia in the past for which he was hospitalized. Otherwise patient complains of some fatigue, denies any nausea vomiting and abdominal pain. ED Course: ED Vitals: On presentation blood pressure 150/91, P 121 RR 16, temp 102.5, O2 sat 95 on room air ED Labs: ED labs significant for WBC 13.8, neutrophil 10.7, PT 12.6, glucose 118, osmolality 273, total protein 8.5, globulin 3.8, lipase 59. Urine shows rare bacteria otherwise negative. ED Imaging:Chest x-ray in ED shows suspicion of pneumonia left base. EKG significant for sinus tachycardia, QTc 439 ED Treatment:Patient was given 1 L NS bolus, Tylenol 1000 mg x 1, ceftriaxone and azithromycin in ED Review of Systems Review of Systems Narrative Review of Systems: ROS: -CONSTITUTIONAL: Denies weight loss, positive for fever, fatigue and chills. -HEENT: Denies changes in vision and hearing. -RESPIRATORY: Positive for SOB and cough. -CV: Denies palpitations and Chest Pain. Positive for chest tightness. -GI: Denies abdominal pain, nausea, vomiting,constipation and diarrhea. -: Denies dysuria and urinary frequency. -MSK: Denies myalgia and joint pain. -SKIN: Denies rash and pruritus. -NEUROLOGICAL: Positive for headache and syncope. -PSYCHIATRIC: Denies recent changes in mood. Denies anxiety and depression. Past Medical History Past Medical History Comments PMH COMMENT: PMH: Positive for seasonal allergies, childhood asthma PSHx: status post hernia repair with mesh placement in 1999 Allergies: No known allergies Social history: Patient lives at home, independent ADLs, positive for pesticide/DDT exposure in past. 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 Exam Vital Signs Temp Pulse Resp BP Pulse Ox O2 Del Method 102.5 F H 117 H 20 136/89 H 92 L Room Air 09/11/24 19:32 09/11/24 19:30 09/11/24 19:30 09/11/24 19:30 09/11/24 19:30 09/11/24 19:30 Narrative Exam Physical Exam General: Awake and in no acute distress. Conversational and non-toxic appearing. HEENT: Normocephalic, atraumatic, mucous membranes moist. Abscess noted, lower jaw behind incisors. Heart: Sinus tachycardia, no murmurs. Lungs: Coarse breath sounds bilaterally. Abdomen: Soft, nondistended, nontender, positive bowel sounds. ?No guarding or rebound tenderness. Neurologic: Alert and oriented x3, no gross neurological deficit, and patient able to move all 4 extremities. Extremities: No edema. Skin: No rash or ecchymoses. Results: Labs 09/11/24 19:05 09/11/24 19:05 Labs: Short CBC 09/11/24 Range/Units 19:05 WBC 13.8 H (3.8-10.6) Thou/mm3 Hgb 14.2 (13.5-16.0) g/dL Hct 41.6 (41.0-53.0) % Plt Count 148 (140-440) Thou/mm3 BMP 09/11/24 19:05 Sodium 136 Potassium 4.0 Chloride 104 Carbon Dioxide 23.3 BUN 13 Creatinine 0.9 Glucose 118 H Calcium 9.7 Cardiac Enzymes 09/11/24 Range/Units 19:05 Troponin I < 0.002 (0.0-0.045) ng/mL Liver Function 09/11/24 Range/Units 19:05 Total Bilirubin 1.1 (0.3-1.2) mg/dL AST 21 (0-34) U/L ALT 24 (10-49) U/L Alkaline Phosphatase 83 (46-116) U/L Albumin 4.7 (3.5-5.0) gm/dL Urine 09/11/24 Range/Units 20:00 Urine Color Lt-Yellow (Lt Yel-Yel) Urine Clarity Clear (Clear/Hazy) Urine pH 8.0 H (5.0-7.0) Ur Specific [place] 1.014 (1.001-1.035) Urine Protein Trace (Neg - Trace) Urine Glucose (UA) Negative (Negative) Quality Measures Quality Measures VTE prophylaxis Medications Home Medications and Allergies Home Medications ?Medication ?Instructions ?Recorded ?Confirmed ?Type hydrocodone 10 mg-acetaminophen 1 tab PO DIRECTED P RN 07/06/22 08/01/22 History 325 mg tablet tamsulosin 0.4 mg capsule 0.4 mg PO QHS 07/06/2208/01 History Allergies Allergy/AdvReac Type Severity Reaction Status Date / Time No Known Allergies Allergy Verified 09/11/24 18:32 Visit Medications Acetaminophen (Acetaminophen 325 Mg Tablet) 650 mg PO Q6H PRN PRN Reason: Fever >101.5 Stop: 10/11/24 20:11 Albuterol/Ipratropium (Albuterol/Ipratropium (Duoneb) Rt Petra 3 Ml Nebu) 3 ml INH Q4HRRT [facility] Stop: 10/11/24 22:59 Enoxaparin Sodium (Enoxaparin Sod Inj 40 Mg/0.4 Ml Syringe) 40 mg SC QDAY [facility] Stop: 09/26/24 08:59 Sodium Chloride (Ns) 1,000 mls @ 75 mls/hr IV .[id number] [facility] Stop: 10/11/24 20:14 Ceftriaxone Sodium 1,000 mg/ (Sodium Chloride) 50 mls @ 100 mls/hr IV QDAY [facility] Stop: 09/19/24 08:59 Azithromycin 500 mg/ Sodium (Chloride) 250 mls @ 250 mls/hr IV QDAY@1400 [facility] Stop: 09/19/24 13:59 Discontinued Medications Acetaminophen (Acetaminophen 500 Mg Tablet) 1,000 mg PO X1 ONE Stop: 09/11/24 18:46 Last Admin: 09/11/24 19:32 Dose: 1,000 mg Ceftriaxone Sodium 1,000 mg/ (Sodium Chloride) 50 mls @ 100 mls/hr IV X1 ONE Stop: 09/11/24 19:14 Last Infusion: 09/11/24 20:07 Dose: Infused Azithromycin 500 mg/ Sodium (Chloride) 250 mls @ 250 mls/hr IV X1 ONE Stop: 09/11/24 19:45 Last Admin: 09/11/24 20:03 Dose: 250 mls/hr Sodium Chloride (Ns) 1,000 mls @ 999 mls/hr IV .Q1H1M ONE Stop: 09/11/24 20:07 Last Admin: 09/11/24 19:33 Dose: 999 mls/hr Assessment & Plan Plan Assessment and Plan: Summary: Mr. Zapien is a 54-year-old male with history of seasonal allergies, childhood asthma and status post hernia repair with mesh placement in 1999 who presented to [facility] emergency department from home on 09/11/2024 with a chief complaint of shortness of breath cough and fever. Patient admitted to hospital for further management of pneumonia, suspicion of sepsis. #Community-acquired pneumonia #SIRS +3/4, suspicion of sepsis #Asthma vs COPD #Leukocytosis Patient presented with worsening cough, shortness of breath fever for about 1 week, productive cough, greenish-yellow sputum. Patient SIRS positive in ED, tachycardic heart rate 121 on presentation, 102.5 F, WBC 13.8 patient was given 1 L NS bolus in ED, does report history of childhood asthma and extensive secondhand smoke, no wheezing on examination. Chest x-ray suspicious of pneumonia, bedside flu and COVID-negative in ED. Pro-Willis 0.13. Sepsis alert called in ED. Plan: -IV ceftriaxone and azithromycin (09/11- -Maintenance fluids IV NS 75 cc/h -DuoNebs every 4 hours -Ordered MRSA nasal screen, RSV, Legionella, Cocci serorlogy. -Ordered Sputum culture. -Follow-up blood culture, urine culture -Supplemental oxygen as needed -Tylenol as needed for fever DVT prophylaxis: Lovenox GI prophylaxis: Not indicated Diet: Cardiac Lines: Peripheral IV Code status: Full code Case discussed with Attending Dr. Hagan. Zonia Cheng PGY1 Disclaimer: This note was dictated by speech recognition. Minor errors in sack cleaning hand may be present due to voice recognition software. Attending Provider Attestation/Addendum Pt was evaluated and plan formulated together with the housestaff team. I have reviewed the residents note above and agree with most of its content. Please refer to the residents note for additional details.
[2024-09-11] MEDS: SODIUM CHLORIDE 0.9% 1000 ML 1,000 ML 75 ML IV (21:19)
[2024-09-11] MEDS: ALBUTEROL/IPRATROPIUM (Duoneb) RT SOL 3 ML NEBU INH (22:44)
[2024-09-11] MEDS: ACETAMINOPHEN 500 MG TABLET PO (23:07)
[2024-09-11] MEDS: BENZONATATE 100 MG CAPSULE 200 MG PO (23:07)
[2024-09-12] VITALS (10 sets, daily range): BP systolic 108–139; BP diastolic 74–93; PULSE 65–93; RESP 17–20; TEMP 36.2–37.6; O2SAT 93–99
[2024-09-12] MEDS: ALBUTEROL/IPRATROPIUM (Duoneb) RT SOL 3 ML NEBU INH ×4 (03:24→19:23)
[2024-09-12 05:02] LABS: Respiratory Syncytial Virus Ag Negative (Negative)
[2024-09-12 06:39] LABS: Basophils % (Auto) 0 % (0-2.5); Eosinophils # (Auto) 0.1 Thou/mm3 (0.0-0.5); Eosinophils % (Auto) 1 % (0-10); Hematocrit 36.1 % (41.0-53.0); Hemoglobin 12.2 g/dL (13.5-16.0); Immature Granulocytes % (Auto) 1 % (0-0); Immature Granulocytes Auto 0.07 Thou/mm3 (0.00-0.00); Lymphocytes # (Auto) 2.4 Thou/mm3 (1.0-4.8); Lymphocytes % (Auto) 23 % (10-50); Mean Corpuscular HGB Conc 33.8 g/dl (31.0-37.0); Mean Corpuscular Hemoglobin 31.7 pg (25.0-35.0); Mean Corpuscular Volume 94 fL (80-100); Monocytes # (Auto) 0.9 Thou/mm3 (0.0-0.8); Monocytes % (Auto) 8 % (0-12); Neutrophils # (Auto) 6.7 Thou/mm3 (1.8-7.7); Neutrophils % (Auto) 67 % (37-80); Nucleated Red Blood Cell % 0 /100 WBC (0); Platelet Count 125 Thou/mm3 (140-440); RDW Standard Deviation 43.5 fL (35.1-43.9); Red Blood Count 3.85 Miln/mm3 (4.50-5.90); White Blood Count 10.1 Thou/mm3 (3.8-10.6)
[2024-09-12 07:06] LABS: Anion Gap 7 (7-16); BUN/Creatinine Ratio 14 Ratio (12-20); Blood Urea Nitrogen 11 mg/dL (9-23); Calcium 8.5 mg/dL (8.3-10.6); Carbon Dioxide 24.6 mMol/L (20.0-31.0); Chloride 107 mMol/L (98-107); Creatinine (Component) 0.8 mg/dL (0.6-1.3); Estimated Creatinine Clearance 104.4 mL/min (>60); Glucose 113 mg/dL (74-106); Osmolality,Calculated 277 (275-295); Potassium 3.9 mMol/L (3.4-5.1); Sodium 139 mMol/L (136-145); eGFR > 60 See Note
[2024-09-12] MEDS: cefTRIAXone 1,000 MG in SODIUM CHLORIDE 0.9% (Popper) 50 ML 100 MG IV (08:24)
[2024-09-12] MEDS: ENOXAPARIN SOD INJ 40 MG/0.4 ML SYRINGE SC (08:24)
[2024-09-12] MEDS: guaiFENesin SYRUP 200 MG/10 ML UDC PO ×2 (08:25→21:17)
[2024-09-12] MEDS: BENZONATATE 100 MG CAPSULE 200 MG PO ×3 (08:30→22:04)
--- NOTE | 2024-09-12 08:55 | ESPR_ITS ---
<Statement entered by Hakan Whitmore MD - 09/12/24 17:06> I discussed with and supervised the internship physician involved in the care of this patient. Patient assessment and plan was discussed with entire medicine team, including my attending. I agree with the assessment and plan as documented by internship doctor. Patient care was discussed with my attending physician Dr. Tejas Whitmore, PGY-2 Documentation for date of: 09/12/24 Subjective Subjective Interval history: Patient was seen and examined at bedside this AM. No acute exents overnight. Patient tolerating diet, adequate urine output and mentation is at baseline. Patient endorses improvement of cough and shortness of breath. Will increase DuoNebs to every 6 hourly. Ordered guaifenesin and Tessalon Perles for cough. Chest physiotherapy with Acapella every 6 hourly ordered Day 2 ceftriaxone 1 g IV daily and azithromycin 500 Mg IV daily started on [09/11? D-dimer ordered to rule out PE Exam Vital Signs Temp Pulse Resp BP Pulse Ox O2 Del Method 97.2 F 74 18 125/91 H 99 Room Air 09/12/24 08:00 09/12/24 08:00 09/12/24 08:00 09/12/24 08:00 09/12/24 08:00 09/12/24 04:00 Narrative Exam Constitutional Alert, oriented x 3 and comfortable. Middle-age male on room air HEENT Vision grossly intact. Patent nares. Trachea midline Respiratory Chest normal on inspection and scattered wheeze and bronchial breath sounds auscultated throughout all lung aguilar Cardiovascular S1 and S2 audible, RRR. No murmurs carotid bruit. No gross JVD. Abdominal Soft and non tender to palpation in all quadrants. BS + Genitourinary No bladder tenderness, no flank pain. Normal to palpation Musculoskeletal Extremities tone within normal limits. No LE edema. Neurological CN II - XII grossly intact. Extremity motor and sensation grossly intact. Skin Warm, dry and intact. Hyperpigmented patch on medial malleolus bilaterally Psychiatric Patient has good affect, is cooperative Objective Labs 09/13/24 05:50 09/13/24 05:50 Labs: Laboratory Results - last 24 hr 09/11/24 09/11/24 09/12/24 19:05 20:00 04:00 WBC 13.8 H RBC 4.56 Hgb 14.2 Hct 41.6 MCV 91 MCH 31.1 MCHC 34.1 RDW Std Deviation 41.1 Plt Count 148 Neut % (Auto) 78 Lymph % (Auto) 15 [place] % (Auto) 6 Eos % (Auto) 0 Baso % (Auto) 0 Neut # (Auto) 10.7 H Lymph # (Auto) 2.1 [place] # (Auto) 0.8 Eos # (Auto) 0.0 Baso # (Auto) 0.0 Immature Gran # (Auto) 0.09 H Absolute Nucleated RBC 0.00 Immature Gran % 1 H Nucleated RBC % 0 PT 12.6 H INR 1.2 APTT 29.1 Sodium 136 Potassium 4.0 Chloride 104 Carbon Dioxide 23.3 Anion Gap 9 BUN 13 Creatinine 0.9 Estim Creat Clear Calc 94.2 eGFR > 60 BUN/Creatinine Ratio 14 Glucose 118 H Calculated Osmolality 273 L Lactic Acid 1.2 Calcium 9.7 Corrected Calcium 9.7 Magnesium 1.9 Total Bilirubin 1.1 AST 21 ALT 24 Alkaline Phosphatase 83 Troponin I < 0.002 B-Natriuretic Peptide < 20 Total Protein 8.5 H Albumin 4.7 Globulin 3.8 H Albumin/Globulin Ratio 1.2 Lipase 59 H Procalcitonin 0.13 Ur Collection Type Clean Catch Urine Color Lt-Yellow Urine Clarity Clear Urine pH 8.0 H Ur Specific [place] 1.014 Urine Protein Trace Urine Glucose (UA) Negative Urine Ketones Negative Urine Blood Negative Urine Nitrite Negative Urine Bilirubin Negative Urine Urobilinogen (Auto) Negative Ur Leukocyte Esterase Negative Urine RBC 1 Urine WBC < 1 Ur Squamous Epith Cells < 1 Urine Bacteria Rare RSV Rapid Negative 09/12/24 06:20 WBC 10.1 RBC 3.85 L Hgb 12.2 L D Hct 36.1 L MCV 94 MCH 31.7 MCHC 33.8 RDW Std Deviation 43.5 Plt Count 125 L Neut % (Auto) 67 Lymph % (Auto) 23 [place] % (Auto) 8 Eos % (Auto) 1 Baso % (Auto) 0 Neut # (Auto) 6.7 Lymph # (Auto) 2.4 [place] # (Auto) 0.9 H Eos # (Auto) 0.1 Baso # (Auto) 0.0 Immature Gran # (Auto) 0.07 H Absolute Nucleated RBC 0.00 Immature Gran % 1 H Nucleated RBC % 0 PT INR APTT Sodium 139 Potassium 3.9 Chloride 107 Carbon Dioxide 24.6 Anion Gap 7 BUN 11 Creatinine 0.8 Estim Creat Clear Calc 104.4 eGFR > 60 BUN/Creatinine Ratio 14 Glucose 113 H Calculated Osmolality 277 Lactic Acid Calcium 8.5 Corrected Calcium Magnesium Total Bilirubin AST ALT Alkaline Phosphatase Troponin I B-Natriuretic Peptide Total Protein Albumin Globulin Albumin/Globulin Ratio Lipase Procalcitonin Ur Collection Type Urine Color Urine Clarity Urine pH Ur Specific [place] Urine Protein Urine Glucose (UA) Urine Ketones Urine Blood Urine Nitrite Urine Bilirubin Urine Urobilinogen (Auto) Ur Leukocyte Esterase Urine RBC Urine WBC Ur Squamous Epith Cells Urine Bacteria RSV Rapid Quality Measures Quality Measures sepsis Current suspected stage: ruled out Possible source: pulmonary Blood cultures ordered: yes Antibiotic ordered: Yes Assessment & Plan Assessment Current Active Medications: Generic Name Dose Route Start Last Admin Trade Name Freq PRN Reason Stop Dose Admin Acetaminophen 650 mg 09/11/24 20:12 Acetaminophen 325 Mg Tablet PO 10/11/24 20:11 Q6H PRN Fever >101.5 Albuterol/Ipratropium 3 ml 09/11/24 23:00 09/12/24 07:23 Albuterol/Ipratropium (Duoneb) Rt Petra 3 Ml Nebu INH 10/11/24 22:59 3 ml Q4HRRT JACKY Administration Benzonatate 200 mg 09/12/24 08:00 09/12/24 08:30 Benzonatate 100 Mg Capsule PO 10/12/24 07:59 200 mg Q8HR JACKY Administration Protocol Enoxaparin Sodium 40 mg 09/12/24 09:00 09/12/24 08:24 Enoxaparin Sod Inj 40 Mg/0.4 Ml Syringe SC 09/26/24 08:59 40 mg QDAY JACKY Administration Guaifenesin 200 mg 09/12/24 09:00 09/12/24 08:25 Guaifenesin Syrup 200 Mg/10 Ml Udc PO 10/12/24 08:59 200 mg BID JACKY Administration Protocol Sodium Chloride 1,000 mls @ 75 mls/hr 09/11/24 20:15 09/11/24 21:19 Ns IV 10/11/24 20:14 75 mls/hr .[id number] JACKY Administration Ceftriaxone Sodium 1,000 mg/ 50 mls @ 100 mls/hr 09/12/24 09:00 09/12/24 08:24 Sodium Chloride IV 09/19/24 08:59 100 mls/hr QDAY JACKY Administration Azithromycin 500 mg/ Sodium 250 mls @ 250 mls/hr 09/12/24 14:00 Chloride IV 09/13/24 13:59 QDAY@1400 [facility] Plan Mr. Zapien is a 54-year-old male with history of seasonal allergies, childhood asthma and status post hernia repair with mesh placement in [address] [facility] emergency department from home on 09/11/2024 with a chief complaint of shortness of breath cough and fever. Patient admitted to hospital for further management of pneumonia, suspicion of sepsis. Community-acquired pneumonia SIRS +3/4 - resolving Asthma exacerbation Leukocytosis- resolving Patient presented with worsening cough, shortness of breath fever for about 1 week, productive cough, greenish-yellow sputum. Patient SIRS positive in ED, tachycardic heart rate 121 on presentation, 102.5 F, WBC 13.8 . Patient came in and found to have 2 or more SIRS criteria and was evaluated for sepsis. However, based upon further work-up, sepsis was ruled out. Chest x-ray suspicious for left base consolidation Bedside flu and COVID-negative, cocci negative IgM. Pro-Willis 0.13. Plan: - Pending MRSA nasal screen, RSV, Legionella, Cocci serorlogy. - Pending blood culture, urine culture - Pending sputum culture - Continue IV ceftriaxone and azithromycin (09/11- - Increased DuoNebs to every 6 hourly from every 4 hourly ? Started on fluticasone nasal spray 1 spray daily Rule out PE On admission patient was tachycardic and had shortness of breath Wells score for PE 1.5; low risk D-dimer <250. PE ruled out Plan: ? D-dimer ordered Health maintenance: Disposition: IV antibiotuics. Nebulizations Diet: Regular Lines: pIVs GI Prophylaxis: Not indicated Thrombo Prophylaxis: Enoxaparin Code status: FULL CODE Plan of care discussed with Attending Dr. Lazaro and PGY2 Dr. Haim Mariano MD PGY 1 Attending Provider Attestation/Addendum Antoinette Joy DO, attest that I was physically present for the avelar portions of the service and evaluated the patient with the resident and I reviewed and discussed the case with the resident and agree with the resident's findings and plans of care as documented above Patient seen and evaluated this AM. He states that he is feeling better today. Patient states that his family was exposed to DDT in the 60s resulting in pulmonary symptoms. He states his mother from a blood disorder, but denies any family or personal history of VTE. D-dimer was negative. CTA had been done about a month ago as well and was negative for PE. Patient appears comfortable on room air. However, he states that he has some dyspnea on exertion. Will continue with breathing treatments and empiric abx at this time. If pt remains stable, anticipate DC in AM.
--- NOTE | 2024-09-12 11:31 | PC.SS ---
SS met with patient regarding his d/c plan.? Pt is alert/oriented.? Pt was admitted for Pneumonia.? Pt confirmed demographic and contact information is correct on facesheet.? Patient states he receives mail at [address] in [place].? Pt is from the [facility] and will return upon dc.? Pt ambulates independently without assistance or DME.? Pt is ok with all ADLs.? Pt named his , Autumn Zapien medical decision maker if she is unable.? Pt does not have an advance directive, SS offered, and pt declined.? Pt states not diabetic and is not on dialysis.? Pt last followed up with? PCP last night.? Pt will require transportation at d/c. D/C plan:? [facility] Next of Kin:? Autumn Zapien, , phone# [phone] or [phone] PCP:? [facility] Address:? Correct on facesheet
[2024-09-12] MEDS: SODIUM CHLORIDE 0.9% 1000 ML 1,000 ML 75 ML IV (11:57)
[2024-09-12] MEDS: FLUTICASONE NAS SPRAY 0.05% 16 GM BTL 1 SPRAY NASAL (12:24)
[2024-09-12 12:55] LABS: D-Dimer < 250 ng/mL (<600)
[2024-09-12] MEDS: AZITHROMYCIN INJ 500 MG in SODIUM CHLORIDE 0.9% 250 ML 250 ML 250 MG IV (14:09)
[2024-09-12 15:18] LABS: Cocci Serology, IgM Negative (Negative)
[2024-09-12] MEDS: ACETAMINOPHEN 325 MG TABLET 650 MG PO (20:19)
[2024-09-13] VITALS (12 sets, daily range): BP systolic 126–137; BP diastolic 85–102; PULSE 68–92; RESP 16–19; TEMP 36.1–36.4; O2SAT 94–100
[2024-09-13] MEDS: ALBUTEROL/IPRATROPIUM (Duoneb) RT SOL 3 ML NEBU INH ×4 (00:36→22:55)
[2024-09-13] MEDS: SODIUM CHLORIDE 0.9% 1000 ML 1,000 ML 75 ML IV ×2 (01:09→16:21)
[2024-09-13] MEDS: BENZONATATE 100 MG CAPSULE 200 MG PO ×3 (05:34→20:58)
[2024-09-13 06:33] LABS: Basophils % (Auto) 1 % (0-2.5); Eosinophils # (Auto) 0.1 Thou/mm3 (0.0-0.5); Eosinophils % (Auto) 2 % (0-10); Hematocrit 39.2 % (41.0-53.0); Immature Granulocytes % (Auto) 2 % (0-0); Immature Granulocytes Auto 0.13 Thou/mm3 (0.00-0.00); Lymphocytes # (Auto) 2.2 Thou/mm3 (1.0-4.8); Lymphocytes % (Auto) 32 % (10-50); Mean Corpuscular HGB Conc 33.2 g/dl (31.0-37.0); Mean Corpuscular Hemoglobin 31.3 pg (25.0-35.0); Mean Corpuscular Volume 94 fL (80-100); Monocytes # (Auto) 0.5 Thou/mm3 (0.0-0.8); Monocytes % (Auto) 7 % (0-12); Neutrophils % (Auto) 58 % (37-80); Nucleated Red Blood Cell % 0 /100 WBC (0); Platelet Count 154 Thou/mm3 (140-440); RDW Standard Deviation 43.2 fL (35.1-43.9); Red Blood Count 4.16 Miln/mm3 (4.50-5.90); White Blood Count 6.9 Thou/mm3 (3.8-10.6)
[2024-09-13 06:52] LABS: Anion Gap 9 (7-16); BUN/Creatinine Ratio 13 Ratio (12-20); Blood Urea Nitrogen 9 mg/dL (9-23); Carbon Dioxide 24.8 mMol/L (20.0-31.0); Chloride 105 mMol/L (98-107); Creatinine (Component) 0.7 mg/dL (0.6-1.3); Estimated Creatinine Clearance 119.3 mL/min (>60); Glucose 102 mg/dL (74-106); Osmolality,Calculated 276 (275-295); Sodium 139 mMol/L (136-145); eGFR > 60 See Note
[2024-09-13] MEDS: FLUTICASONE NAS SPRAY 0.05% 16 GM BTL 1 SPRAY NASAL (09:22)
[2024-09-13] MEDS: guaiFENesin SYRUP 200 MG/10 ML UDC PO ×2 (09:38→20:09)
[2024-09-13] MEDS: ENOXAPARIN SOD INJ 40 MG/0.4 ML SYRINGE SC (09:38)
[2024-09-13] MEDS: cefTRIAXone 1,000 MG in SODIUM CHLORIDE 0.9% (Popper) 50 ML 100 MG IV (09:40)
--- NOTE | 2024-09-13 10:01 | PD.RESDS ---
Planned Discharge Date 09/13/24 DS: Providers Provider Date of admission: 09/11/24 20:12 Primary care physician: Nadeem Chua PA-C Admitting Provider: Yoan Hagan MD Attending Provider on Admission: Yoan Hagan MD Attending Provider on DC: Wilmar Mariano MD Discharging Provider: Wilmar Mariano MD Hospital Course Hospital Course Hospital course: Patient was seen and examined at bedside this AM. No acute exents overnight. Patient tolerating diet, adequate urine output and mentation is at baseline. Patient endorses improvement of cough and shortness of breath. Will increase DuoNebs to every 6 hourly. Ordered guaifenesin and Tessalon Perles for cough. Chest physiotherapy with Acapella every 6 hourly ordered Day 2 ceftriaxone 1 g IV daily and azithromycin 500 Mg IV daily started on [09/11? D-dimer ordered to rule out PE Time Spent with Patient Time attestation: Total time spent providing and/or coordinating discharge services: Exam Vital Signs Temp Pulse Resp BP Pulse Ox O2 Del Method 97.2 F 84 19 126/85 H 98 Room Air 09/13/24 08:00 09/13/24 08:00 09/13/24 08:00 09/13/24 08:00 09/13/24 08:00 09/13/24 08:00 Discharge Plan Plan Patient condition on transfer: Stable Prescriptions/Referrals Prescriptions/Med Rec: No Action hydrocodone-acetaminophen 10-325 mg tablet 1 tab PO DIRECTED PRN tamsulosin 0.4 mg capsule 0.4 mg PO QHS hydrocodone-acetaminophen 5-325 mg tablet 1 tab PO BID MDD 10 PRN (Reason: pain) Qty: 10 0RF methocarbamol 500 mg tablet 500 mg PO Q8H Qty: 14 0RF meloxicam 7.5 mg tablet 7.5 mg PO QDAY Qty: 14 0RF acetaminophen 500 mg capsule 1,000 mg PO Q8HR PRN (Reason: pain) Qty: 30 0RF ibuprofen 800 mg tablet 800 mg PO TID PRN (Reason: pain) Qty: 30 0RF benzonatate 100 mg capsule 100 mg PO TID Qty: 14 0RF fluticasone propionate [Flonase Allergy Relief] 50 mcg/actuation spray,suspension 2 spray INTRANASAL QDAY PRN (Reason: allergy symptoms) Qty: 16 0RF Rx Instructions: administer into each nostril loratadine 10 mg tablet 10 mg PO QDAY PRN (Reason: allergy symptoms) Qty: 30 0RF doxycycline monohydrate 100 mg capsule 100 mg PO BID Qty: 14 0RF Referrals: Nadeem Chua PA-C [Primary Care Provider] - Patient/Caregiver Discharge Instructions Print Language: Tamazight
--- NOTE | 2024-09-13 13:16 | PC.NURSE ---
O2 on room air: Layin%, Sittin%, Standin, Walking 98% HR 88
[2024-09-13] MEDS: BUDESONIDE RT 0.5 MG/2 ML NEBU INH ×2 (13:18→19:15)
[2024-09-13] MEDS: ACETAMINOPHEN 325 MG TABLET 650 MG PO (13:37)
--- NOTE | 2024-09-13 14:07 | ESPR_ITS ---
<Statement entered by Uri Rutherford MD - 09/14/24 07:11> Agree with plan and examination finding on the note below. Patient seen and examined at bedside today. Labs and imaging reviewed. Patient care discussed with my attending Dr. Lazaro and co-resident Dr. Mariano. Documentation for date of: 09/13/24 Subjective Subjective Interval history: Patient was seen and examined at bedside this AM. No acute exents overnight. Patient tolerating diet, adequate urine output and mentation is at baseline. Patient endorses improvement of cough and shortness of breath. However patient's complaints of dizziness upon standing and left facial sinus pressure. Will order orthostatic vitals, walk test. Will increase DuoNebs to every 8 hourly. Started on budesonide 0.5 Mg nebulization twice daily Day 3 ceftriaxone 1 g IV daily and azithromycin 500 Mg IV daily started on [09/11? Patient fit for discharge but will need acute rehab placement as per PT. Pending insurance authorization Exam Vital Signs Temp Pulse Resp BP Pulse Ox O2 Del Method 97.1 F 77 18 137/91 H 99 Nasal Cannula 09/13/24 12:00 09/13/24 13:20 09/13/24 13:20 09/13/24 12:45 09/13/24 13:20 09/13/24 12:00 Narrative Exam Constitutional Alert, oriented x 3 and comfortable. Middle-age male on room air HEENT Vision grossly intact. Patent nares. Trachea midline. Left facial sinus pressure on palpation Respiratory Chest normal on inspection and scattered wheeze mid to lower zones bilaterally?improved Cardiovascular S1 and S2 audible, RRR. No murmurs carotid bruit. No gross JVD. Abdominal Soft and non tender to palpation in all quadrants. BS + Genitourinary No bladder tenderness, no flank pain. Normal to palpation Musculoskeletal Extremities tone within normal limits. No LE edema. Neurological CN II - XII grossly intact. Extremity motor and sensation grossly intact. Skin Warm, dry and intact. Hyperpigmented patch on medial malleolus bilaterally Psychiatric Patient has good affect, is cooperative Objective Labs 09/13/24 05:50 09/13/24 05:50 Labs: Laboratory Results - last 24 hr 09/12/24 09/13/24 06:20 05:50 WBC 6.9 RBC 4.16 L Hgb 13.0 L Hct 39.2 L MCV 94 MCH 31.3 MCHC 33.2 RDW Std Deviation 43.2 Plt Count 154 D Neut % (Auto) 58 Lymph % (Auto) 32 [place] % (Auto) 7 Eos % (Auto) 2 Baso % (Auto) 1 Neut # (Auto) 4.0 Lymph # (Auto) 2.2 [place] # (Auto) 0.5 Eos # (Auto) 0.1 Baso # (Auto) 0.0 Immature Gran # (Auto) 0.13 H Absolute Nucleated RBC 0.00 Immature Gran % 2 H Nucleated RBC % 0 Sodium 139 Potassium 4.0 Chloride 105 Carbon Dioxide 24.8 Anion Gap 9 BUN 9 Creatinine 0.7 Estim Creat Clear Calc 119.3 eGFR > 60 BUN/Creatinine Ratio 13 Glucose 102 Calculated Osmolality 276 Calcium 9.0 Coccidioides IgM Ab Negative Quality Measures Quality Measures sepsis Current suspected stage: ruled out Possible source: pulmonary Blood cultures ordered: yes Antibiotic ordered: Yes Assessment & Plan Assessment Current Active Medications: Generic Name Dose Route Start Last Admin Trade Name Freq PRN Reason Stop Dose Admin Acetaminophen 650 mg 09/12/24 19:50 09/13/24 13:37 Acetaminophen 325 Mg Tablet PO 10/11/24 20:11 650 mg Q6H PRN Administration PAIN OR FEVER > 101 Albuterol/Ipratropium 3 ml 09/12/24 13:00 09/13/24 13:18 Albuterol/Ipratropium (Duoneb) Rt Petra 3 Ml Nebu INH 10/12/24 12:59 3 ml Q6HRRT JACKY Administration Benzonatate 200 mg 09/12/24 08:00 09/13/24 13:37 Benzonatate 100 Mg Capsule PO 10/12/24 07:59 200 mg Q8HR JACKY Administration Protocol Budesonide 0.5 mg 09/13/24 10:15 09/13/24 13:18 Budesonide Rt 0.5 Mg/2 Ml Nebu INH 10/13/24 10:14 0.5 mg BIDRT JACKY Administration Enoxaparin Sodium 40 mg 09/12/24 09:00 09/13/24 09:38 Enoxaparin Sod Inj 40 Mg/0.4 Ml Syringe SC 09/26/24 08:59 40 mg QDAY JACKY Administration Fluticasone Propionate 1 spray 09/12/24 09:45 09/12/24 12:24 Fluticasone [place]hat [place] 0.05% 16 Gm Btl NASAL 10/12/24 09:44 1 spray QDAY JACKY Administration Guaifenesin 200 mg 09/12/24 09:00 09/13/24 09:38 Guaifenesin Syrup 200 Mg/10 Ml Udc PO 10/12/24 08:59 200 mg BID JACKY Administration Protocol Sodium Chloride 1,000 mls @ 75 mls/hr 09/11/24 20:15 09/13/24 01:09 Ns IV 10/11/24 20:14 75 mls/hr .[id number] JACKY Administration Ceftriaxone Sodium 1,000 mg/ 50 mls @ 100 mls/hr 09/12/24 09:00 09/13/24 09:40 Sodium Chloride IV 09/15/24 08:59 100 mls/hr QDAY JACKY Administration Plan Mr. Zapien is a 54-year-old male with history of seasonal allergies, childhood asthma and status post hernia repair with mesh placement in 1999 who presented to [facility] emergency department from home on 09/11/2024 with a chief complaint of shortness of breath cough and fever. Patient admitted to hospital for further management of pneumonia, suspicion of sepsis. Community-acquired pneumonia?resolving SIRS +3/4 - resolving Asthma exacerbation?resolving Leukocytosis- resolving Patient presented with worsening cough, shortness of breath fever for about 1 week, productive cough, greenish-yellow sputum. Patient SIRS positive in ED, tachycardic heart rate 121 on presentation, 102.5 F, WBC 13.8 . Patient came in and found to have 2 or more SIRS criteria and was evaluated for sepsis. However, based upon further work-up, sepsis was ruled out. Chest x-ray suspicious for left base consolidation Bedside flu and COVID-negative, cocci negative IgM, RSV negative. Pro-Willis 0.13. MRSA nasal screen?negative Blood culture negative x 24 hours preliminary Plan: - Pending urine culture and sputum culture - Continue IV ceftriaxone and azithromycin (09/11- - Increased DuoNebs to every 8 hourly from every 6 hourly ? Continue fluticasone nasal spray 1 spray daily ? Started on budesonide 0.5 Mg nebulizations twice daily PE ruled out On admission patient was tachycardic and had shortness of breath Wells score for PE 1.5; low risk D-dimer <250. PE ruled out Dizziness for investigation Patient endorses dizziness upon standing and also constant left facial sinus pressure On exam patient has tenderness to palpation of the left facial sinuses. DDx: Orthostatic hypotension, sinusitis, labyrinthitis, BPPV Lying blood pressure 137/91, standing blood pressure 135/102 Lying pulse 84, standing pulse 89 Plan: ? Orthostatic vitals ordered Health maintenance: Disposition: IV antibiotuics. Nebulizations. Medically cleared for discharge, pending insurance authorization for acute rehab Diet: Regular Lines: pIVs GI Prophylaxis: Pantoprazole 40 Mg IV daily Thrombo Prophylaxis: Enoxaparin Code status: FULL CODE Plan of care discussed with Attending Dr. Lazaro and PGY3 Dr. Krish Mariano MD PGY 1 Attending Provider Attestation/Addendum Rufino, Antoinette Lazaro DO, attest that I was physically present for the avelar portions of the service and evaluated the patient with the resident and I reviewed and discussed the case with the resident and agree with the resident's findings and plans of care as documented above Patient seen and evaluated this AM. He states he is feeling somewhat improved, but continues to have some expiratory wheezing. He endorses dizziness upon getting up or turning his head. He states he feels congested and admits to sinus pressure. Suspect sinusitis as a result of his dizziness. Will start on augmentin. Patient endorses some GRIFFITH. Will order inhaled budesonide. Patient states he would like to go to SNF due to generalized weakness. Will order PT for further recommendations. Anticipate DC within next 24h
--- NOTE | 2024-09-13 15:37 | PC.SS ---
MEAT SCRUBBER sent referrals to SNF's and completed PASSAR
[2024-09-13] MEDS: PANTOPRAZOLE INJ 40 MG VIAL IV (16:22)
[2024-09-14] VITALS: BP 137/88; PULSE 98; RESP 18; TEMP 36.3; O2SAT 93
[2024-09-14 04:00] VITALS: BP 113/83; PULSE 70; RESP 18; TEMP 36.4; O2SAT 96
[2024-09-14] MEDS: BENZONATATE 100 MG CAPSULE 200 MG PO ×2 (05:15→13:45)
[2024-09-14] MEDS: SODIUM CHLORIDE 0.9% 1000 ML 1,000 ML 75 ML IV (05:39)
[2024-09-14 06:03] LABS: Basophils # (Auto) 0.1 Thou/mm3 (0.0-0.2); Basophils % (Auto) 1 % (0-2.5); Eosinophils # (Auto) 0.1 Thou/mm3 (0.0-0.5); Eosinophils % (Auto) 2 % (0-10); Hematocrit 40.3 % (41.0-53.0); Hemoglobin 13.3 g/dL (13.5-16.0); Immature Granulocytes % (Auto) 3 % (0-0); Immature Granulocytes Auto 0.25 Thou/mm3 (0.00-0.00); Lymphocytes # (Auto) 2.7 Thou/mm3 (1.0-4.8); Lymphocytes % (Auto) 33 % (10-50); Mean Corpuscular Hemoglobin 30.8 pg (25.0-35.0); Mean Corpuscular Volume 93 fL (80-100); Monocytes # (Auto) 0.5 Thou/mm3 (0.0-0.8); Monocytes % (Auto) 6 % (0-12); Neutrophils # (Auto) 4.5 Thou/mm3 (1.8-7.7); Neutrophils % (Auto) 56 % (37-80); Nucleated Red Blood Cell % 0 /100 WBC (0); Platelet Count 177 Thou/mm3 (140-440); Red Blood Count 4.32 Miln/mm3 (4.50-5.90); White Blood Count 8.1 Thou/mm3 (3.8-10.6)
[2024-09-14 06:27] LABS: Anion Gap 10 (7-16); BUN/Creatinine Ratio 14 Ratio (12-20); Blood Urea Nitrogen 11 mg/dL (9-23); Calcium 9.5 mg/dL (8.3-10.6); Chloride 105 mMol/L (98-107); Creatinine (Component) 0.8 mg/dL (0.6-1.3); Estimated Creatinine Clearance 104.4 mL/min (>60); Glucose 97 mg/dL (74-106); Osmolality,Calculated 275 (275-295); Potassium 3.9 mMol/L (3.4-5.1); Sodium 138 mMol/L (136-145); eGFR > 60 See Note
[2024-09-14] MEDS: ALBUTEROL/IPRATROPIUM (Duoneb) RT SOL 3 ML NEBU INH (06:54)
[2024-09-14 06:55] VITALS: PULSE 66; RESP 19; O2SAT 100
[2024-09-14] MEDS: BUDESONIDE RT 0.5 MG/2 ML NEBU INH (06:59)
[2024-09-14 08:00] VITALS: BP 130/87; PULSE 80; RESP 16; TEMP 36.1; O2SAT 95
[2024-09-14] MEDS: ENOXAPARIN SOD INJ 40 MG/0.4 ML SYRINGE SC (08:29)
[2024-09-14] MEDS: guaiFENesin SYRUP 200 MG/10 ML UDC PO (08:29)
[2024-09-14] MEDS: cefTRIAXone 1,000 MG in SODIUM CHLORIDE 0.9% (Popper) 50 ML 100 MG IV (08:29)
[2024-09-14] MEDS: PANTOPRAZOLE INJ 40 MG VIAL IV (08:30)
[2024-09-14] MEDS: ACETAMINOPHEN 325 MG TABLET 650 MG PO (08:30)
[2024-09-14] MEDS: FLUTICASONE NAS SPRAY 0.05% 16 GM BTL 1 SPRAY NASAL (08:44)
--- NOTE | 2024-09-14 09:25 | ESPR_ITS ---
<Statement entered by Uri Rutherford MD - 09/15/24 09:06> Agree with plan and examination finding on the note below. Patient seen and examined at bedside today. Labs and imaging reviewed. Patient care discussed with my attending Dr. Lazaro and co-resident Dr. Mariano. Documentation for date of: 09/14/24 Subjective Subjective Interval history: Patient was seen and examined at bedside this AM. No acute exents overnight. Patient tolerating diet, adequate urine output and mentation is at baseline. Patient endorses improvement of his cough and shortness of breath. Will decrease DuoNebs to twice daily Will discontinue continuous pulse oximetry to allow patient to ambulate Patient fit for discharge but will need acute rehab placement as per PT. Pending insurance authorization Exam Vital Signs Temp Pulse Resp BP Pulse Ox O2 Del Method 97 F 80 16 130/87 H 95 Room Air 09/14/24 08:00 09/14/24 08:00 09/14/24 08:00 09/14/24 08:00 09/14/24 08:00 09/14/24 08:00 Narrative Exam Constitutional Alert, oriented x 3 and comfortable. Middle-age male on room air HEENT Vision grossly intact. Patent nares. Trachea midline. Left facial sinus pressure on palpation Respiratory Chest normal on inspection and lungs clear to auscultation bilaterally Cardiovascular S1 and S2 audible, RRR. No murmurs carotid bruit. No gross JVD. Abdominal Soft and non tender to palpation in all quadrants. BS + Genitourinary No bladder tenderness, no flank pain. Normal to palpation Musculoskeletal Extremities tone within normal limits. No LE edema. Neurological CN II - XII grossly intact. Extremity motor and sensation grossly intact. Skin Warm, dry and intact. Hyperpigmented patch on medial malleolus bilaterally Psychiatric Patient has good affect, is cooperative Objective Labs 09/14/24 05:22 09/14/24 05:22 Labs: Laboratory Results - last 24 hr 09/14/24 05:22 WBC 8.1 RBC 4.32 L Hgb 13.3 L Hct 40.3 L MCV 93 MCH 30.8 MCHC 33.0 RDW Std Deviation 42.0 Plt Count 177 Neut % (Auto) 56 Lymph % (Auto) 33 [place] % (Auto) 6 Eos % (Auto) 2 Baso % (Auto) 1 Neut # (Auto) 4.5 Lymph # (Auto) 2.7 [place] # (Auto) 0.5 Eos # (Auto) 0.1 Baso # (Auto) 0.1 Immature Gran # (Auto) 0.25 H Absolute Nucleated RBC 0.00 Immature Gran % 3 H Nucleated RBC % 0 Sodium 138 Potassium 3.9 Chloride 105 Carbon Dioxide 23.0 Anion Gap 10 BUN 11 Creatinine 0.8 Estim Creat Clear Calc 104.4 eGFR > 60 BUN/Creatinine Ratio 14 Glucose 97 Calculated Osmolality 275 Calcium 9.5 Quality Measures Quality Measures sepsis Current suspected stage: ruled out Possible source: pulmonary Blood cultures ordered: yes Antibiotic ordered: Yes Assessment & Plan Assessment Current Active Medications: Generic Name Dose Route Start Last Admin Trade Name Freq PRN Reason Stop Dose Admin Acetaminophen 650 mg 09/12/24 19:50 09/14/24 08:30 Acetaminophen 325 Mg Tablet PO 10/11/24 20:11 650 mg Q6H PRN Administration PAIN OR FEVER > 101 Albuterol/Ipratropium 3 ml 09/14/24 21:00 Albuterol/Ipratropium (Duoneb) Rt Petra 3 Ml Nebu INH 10/14/24 20:59 BID JACKY Benzonatate 200 mg 09/12/24 08:00 09/14/24 05:15 Benzonatate 100 Mg Capsule PO 10/12/24 07:59 200 mg Q8HR JACKY Administration Protocol Budesonide 0.5 mg 09/13/24 10:15 09/14/24 06:59 Budesonide Rt 0.5 Mg/2 Ml Nebu INH 10/13/24 10:14 0.5 mg BIDRT JACKY Administration Enoxaparin Sodium 40 mg 09/12/24 09:00 09/14/24 08:29 Enoxaparin Sod Inj 40 Mg/0.4 Ml Syringe SC 09/26/24 08:59 40 mg QDAY JACKY Administration Fluticasone Propionate 1 spray 09/12/24 09:45 09/14/24 08:44 Fluticasone Farhat [place] 0.05% 16 Gm Btl NASAL 10/12/24 09:44 1 spray QDAY JACKY Administration Guaifenesin 200 mg 09/12/24 09:00 09/14/24 08:29 Guaifenesin Syrup 200 Mg/10 Ml Udc PO 10/12/24 08:59 200 mg BID JACKY Administration Protocol Sodium Chloride 1,000 mls @ 75 mls/hr 09/11/24 20:15 09/14/24 05:39 Ns IV 10/11/24 20:14 75 mls/hr .[id number] JACKY Administration Ceftriaxone Sodium 1,000 mg/ 50 mls @ 100 mls/hr 09/12/24 09:00 09/14/24 08:29 Sodium Chloride IV 09/15/24 08:59 100 mls/hr QDAY JACKY Administration Pantoprazole Sodium 40 mg 09/13/24 15:45 09/14/24 08:30 Pantoprazole Inj 40 Mg Vial IV 10/13/24 15:44 40 mg QDAY JACKY Administration Plan Mr. Zapien is a 54-year-old male with history of seasonal allergies, childhood asthma and status post hernia repair with mesh placement in 1999 who presented to [facility] emergency department from home on 09/11/2024 with a chief complaint of shortness of breath cough and fever. Patient admitted to hospital for further management of pneumonia, suspicion of sepsis. Community-acquired pneumonia?resolving SIRS +3/4 - resolving Asthma exacerbation?resolving Leukocytosis- resolving Patient presented with worsening cough, shortness of breath fever for about 1 week, productive cough, greenish-yellow sputum. Patient SIRS positive in ED, tachycardic heart rate 121 on presentation, 102.5 F, WBC 13.8 . Patient came in and found to have 2 or more SIRS criteria and was evaluated for sepsis. However, based upon further work-up, sepsis was ruled out. Chest x-ray suspicious for left base consolidation Bedside flu and COVID-negative, cocci negative IgM, RSV negative. Pro-Willis 0.13. MRSA nasal screen?negative Blood culture negative x 48 hours preliminary Urine culture no bacterial growth Sputum culture 3+ mixed oral dejon Received 4 days of ceftriaxone 1 g IV daily and azithromycin 500 Mg IV daily from [09/11?09/14] Plan: - Discontinued IV ceftriaxone and azithromycin [09/11-09/14] ? Started on Augmentin 1 tab p.o. twice daily from tomorrow - Increased DuoNebs to every twice daily from every 8 hourly ? Continue fluticasone nasal spray 1 spray daily ? Continue budesonide 0.5 Mg nebulizations twice daily PE ruled out On admission patient was tachycardic and had shortness of breath Wells score for PE 1.5; low risk D-dimer <250. PE ruled out Dizziness for investigation Likely sinusitis Patient endorses dizziness upon standing and also constant left facial sinus pressure On exam patient has tenderness to palpation of the left facial sinuses. DDx: Orthostatic hypotension, sinusitis, labyrinthitis, BPPV Lying blood pressure 137/91, standing blood pressure 135/102 Lying pulse 84, standing pulse 89 Orthostatic vitals were negative, Parish-Hallpike was negative. Patient has feeling of facial pressure and tenderness upon palpation of the sinuses. Plan: ? Continue Augmentin p.o. Health maintenance: Disposition: Nebulizations. Medically cleared for discharge, pending insurance authorization for acute rehab Diet: Regular Lines: pIVs GI Prophylaxis: Pantoprazole 40 Mg IV daily Thrombo Prophylaxis: Enoxaparin Code status: FULL CODE Plan of care discussed with Attending Dr. Lazaro and PGY3 Dr. Krish Mariano MD PGY 1 Attending Provider Attestation/Addendum Antoinette Joy, , attest that I was physically present for the avelar portions of the service and evaluated the patient with the resident and I reviewed and discussed the case with the resident and agree with the resident's findings and plans of care as documented above Patient seen and evaluated this AM. He states he is feeling improved. No acute events overnight. Short term rehab recommended by PT yesterday. Patient can be discharged to SNF once arranged. He remains on room air and no acute respiratory distress. Anticipate DC within next 24h
--- NOTE | 2024-09-14 09:40 | PC.SS ---
APPLICATION SERVICES MANAGER followed up with [facility] on male bed availability. No male beds available. APPLICATION SERVICES MANAGER followed up with [facility], [place] and [facility] awaiting responses.
[2024-09-14 10:05] VITALS: BMI 27.6
[2024-09-14 12:00] VITALS: BP 127/82; PULSE 76; RESP 17; TEMP 36.2; O2SAT 94
--- NOTE | 2024-09-14 14:40 | ESDS_ITS ---
<Statement entered by Uri Rutherford MD - 09/15/24 09:06> Agree with plan and examination finding on the note below. Patient seen and examined at bedside today. Labs and imaging reviewed. Patient care discussed with my attending Dr. Lazaro and co-resident Dr. Mariano. <Statement entered by Antoinette Lazaro DO - 09/15/24 07:33> I, Antoinette Lazaro DO, attest that I was physically present for the avelar portions of the service and evaluated the patient with the resident and I reviewed and discussed the case with the resident and agree with the resident's findings and plans of care as documented above Planned Discharge Date 09/14/24 DS: Providers Provider Date of admission: 09/11/24 20:12 Primary care physician: Nadeem Chua PA-C Admitting Provider: Yoan Hagan MD Attending Provider on Admission: Antoinette Lazaro DO Consults: 09/13/24 10:15 PT [Referral Physical Therapy] Urgent Comment: Physician Instructions: Instructions: For SNF/ sub acute placement please Attending Provider on DC: Antoinette Lazaro DO Discharging Provider: Wilmar Mariano MD DS: Diagnosis Problem List Completed Was Problem List Reviewed/Reconciled?: Yes Hospital Course Hospital Course Hospital course: Mr. Zapien is a 54-year-old male with history of seasonal allergies, childhood asthma and status post hernia repair with mesh placement in 1999 who presented to [facility] emergency department from home on 09/11/2024 with a chief complaint of shortness of breath cough and fever. Patient admitted to hospital for further management of pneumonia, suspicion of sepsis. Patient presented with worsening cough, shortness of breath fever for about 1 week, productive cough, greenish-yellow sputum. Patient SIRS positive in ED, tachycardic heart rate 121 on presentation, 102.5 F, WBC 13.8 . Patient came in and found to have 2 or more SIRS criteria and was evaluated for sepsis. However, based upon further work-up, sepsis was ruled out. For patient's community-acquired pneumonia and asthma exacerbation. He was treated with a 4-day course of ceftriaxone 1 g IV daily and azithromycin 500 Mg IV daily from [09/11 - 09/14]. During hospitalization patient wheezing improved as well as his shortness of breath. Patient was also investigated for PE due to his tachycardia and shortness of breath. D-dimer was <250 and Wells score for PE was 1.5. No further workup was indicated and PE was ruled out. With regards to patient's dizziness for investigation, orthostatic vitals were negative, Pat-Hallpike maneuver was negative. Patient had feeling of facial pressure and tenderness on palp palpation of the sinuses. Most likely diagnosis for sinusitis. Will be discharged on a short course of Augmentin. All patient's labs are now returning to his baseline. Patient is now clinically stable and [facility] Discharge diagnoses: 1. Community-acquired pneumonia?resolving 2. SIRS 3/4?resolved 3. Asthma exacerbation?resolved 4. Leukocytosis?resolved 5. Pulmonary embolism ruled out 6. Likely sinusitis Discharge plan: ? You have been started on antibiotic. Please take 1 tablet twice daily for 2 more days to complete your course. ? You have been started on an inhaler for your asthma. Take 1 puff twice a day, every day. ? We have stopped your doxycycline, [place], ibuprofen and meloxicam. - Continue taking the rest of your home medications as before. - Follow up with your primary care physician within 1 week of discharge. If you do not have a primary care physician, please follow up with the [facility] Residents clinic ([phone]) ? If you experience any new, worsening or persistent symptoms either call your primary doctor, or dial 911 or present to the emergency department. We are grateful to be able to participate in Mr. Zapine's care. We wish him the best. Plan of care discussed with Attending Dr. Lazaro and PGY3 Dr. Krish Mariano MD PGY 1 Time Spent with Patient Time attestation: Total time spent providing and/or coordinating discharge services: Time spent: Greater than 30 minutes (38) Exam Vital Signs Temp Pulse Resp BP Pulse Ox O2 Del Method 97.1 F 76 17 127/82 94 L Room Air 09/14/24 12:09/14/24 12:09/14/24 12:09/14/24 12:00 09/14/24 12:09/14/24 12:00 Narrative Exam Constitutional Alert, oriented x 3 and comfortable. Middle-age male on room air HEENT Vision grossly intact. Patent nares. Trachea midline. Left facial sinus pressure on palpation Respiratory Chest normal on inspection and lungs clear to auscultation bilaterally Cardiovascular S1 and S2 audible, RRR. No murmurs carotid bruit. No gross JVD. Abdominal Soft and non tender to palpation in all quadrants. BS + Genitourinary No bladder tenderness, no flank pain. Normal to palpation Musculoskeletal Extremities tone within normal limits. No LE edema. Neurological CN II - XII grossly intact. Extremity motor and sensation grossly intact. Skin Warm, dry and intact. Hyperpigmented patch on medial malleolus bilaterally Psychiatric Patient has good affect, is cooperative Discharge Plan Plan Patient Disposition: HOME (Self Care) Patient condition on transfer: Stable Care Plan Goals: ? You have been started on antibiotic. Please take 1 tablet twice daily for 2 more days to complete your course. ? You have been started on an inhaler for your asthma. Take 1 puff twice a day, every day. ? We have stopped your doxycycline, [place], ibuprofen and meloxicam. - Continue taking the rest of your home medications as before. - Follow up with your primary care physician within 1 week of discharge. If you do not have a primary care physician, please follow up with the [facility] Residents clinic ([phone]) ? If you experience any new, worsening or persistent symptoms either call your primary doctor, or dial 911 or present to the emergency department. Prescriptions/Referrals Prescriptions/Med Rec: New amoxicillin-pot clavulanate 875-125 mg tablet 1 tab PO BID 2 Days Qty: 4 0RF budesonide-formoterol [Symbicort] 80-4.5 mcg/actuation HFA aerosol inhaler 1 puff inhalation BID 30 Days Qty: 10.2 2RF Continued tamsulosin 0.4 mg capsule 0.4 mg PO QHS methocarbamol 500 mg tablet 500 mg PO Q8H Qty: 14 0RF acetaminophen 500 mg capsule 1,000 mg PO Q8HR PRN (Reason: pain) Qty: 30 0RF benzonatate 100 mg capsule 100 mg PO TID Qty: 14 0RF fluticasone propionate [Flonase Allergy Relief] 50 mcg/actuation spray,suspension 2 spray INTRANASAL QDAY PRN (Reason: allergy symptoms) Qty: 16 0RF Rx Instructions: administer into each nostril loratadine 10 mg tablet 10 mg PO QDAY PRN (Reason: allergy symptoms) Qty: 30 0RF Discontinued hydrocodone-acetaminophen 10-325 mg tablet 1 tab PO DIRECTED PRN hydrocodone-acetaminophen 5-325 mg tablet 1 tab PO BID MDD 10 PRN (Reason: pain) Qty: 10 0RF meloxicam 7.5 mg tablet 7.5 mg PO QDAY Qty: 14 0RF ibuprofen 800 mg tablet 800 mg PO TID PRN (Reason: pain) Qty: 30 0RF doxycycline monohydrate 100 mg capsule 100 mg PO BID Qty: 14 0RF Referrals: Nadeem Chua PA-C [Primary Care Provider] - Wilmar Mariano MD [Resident] - Patient/Caregiver Discharge Instructions Discharge Activity: as per physical therapy Print Language: Finnish Stand Alone Forms: Dinah Award Info., Patient Portal Info Letter Discharge Order Discharge Orders: Discharge (Routine); Ordered 09/14/24 Ordered By: Uri Rutherford Quality Discharge Quality Measures VTE prophylaxis
--- NOTE | 2024-09-14 14:45 | PC.SS ---
MOLD SPRAYER informed patient that local SNF's have declined for placement. Patient requested inquiry to [facility], . MOLD SPRAYER contacted [facility], spoke to staff Geena. MOLD SPRAYER informed that if patient can make it to site prior to 4:00 pm patient can interview for placement. [facility] staff unable to confirm open male bed. [facility] staff stated that if no placement available [facility] will assist with re-directing the patient to secure placement. MOLD SPRAYER updated patient. Patient agreeable to discharge plan. Patient will have spouse transport to [facility]. Patient reiterated that he does not have family or friend residence that he can discharge to. MOLD SPRAYER offered referral for walker. Patient declined offer for walker. MOLD SPRAYER notified resident of need to submit discharge order. Patient's pharmacy of choice is [facility] ([address]). MOLD SPRAYER updated bedside nurse.
[2024-09-14 14:55] LABS: Cocci Serology, IgG Negative (Negative)
--- NOTE | 2024-09-14 17:16 | PC.SS ---
Rounding Note: Plan is to discharge the patient today.
[2024-09-16 06:59] LABS: Legionella Ag, EIA, Urine* NOT DETECTED
== END 2024-09-14 15:30 | disposition home or self-care (01) | DRG 139 ==
LOC: SERX 19:30 → SERHOLD 20:28 → S3SX 09-14 05:53 → SERHOLD 09-14 05:53
PROVIDERS: Admitting Provider Internal Medicine; Emergency Provider Emergency Medicine; PCP Physician Assistant Medical; Visit Provider Internal Medicine
DX: J18.9 Pneumonia, unspecified organism (principal); I10 Essential (primary) hypertension; Z77.22 Contact with and (suspected) exposure to environmental tobacco smoke (acute) (chronic); D69.6 Thrombocytopenia, unspecified; J30.2 Other seasonal allergic rhinitis; D72.829 Elevated white blood cell count, unspecified; J45.901 Unspecified asthma with (acute) exacerbation; Z11.52 Encounter for screening for COVID-19; Z87.01 Personal history of pneumonia (recurrent); Z63.4 Disappearance and death of family member; Z87.440 Personal history of urinary (tract) infections
CPT/HCPCS: 36415; 71045; 80048; 80053; 81001; 83605; 83690; 83735; 83880; 84145; 84484; 85025; 85379; 85610; 85730; 86331; 86635; 87040; 87081; 87086; 87205; 87400; 87449; 87634; 87811; 93005; 94640; 94664; 94667; 96365; 96367; 97162; 99291; A9270; J0456; J0696; J1650; J2470; J7030; J7050